=== PATIENT | female | born 2000 | race Caucasian/White ===

== ENCOUNTER 2022-09-18 08:41 | Outpatient (RCR) | payer OTHER, BC, SELFPAY ==
--- NOTE | 2022-09-18 11:47 | PC.NURSE ---
Addendum entered by Stefany Li 09/18/22 12:00: Discussed keeping up with po fluids during warm weather. States I also did not eat well yesterday and by afternoon nevaeh got nervous Support offered with reminders to care for self in order to make milk for NB. Verbalized understanding. Discussed medications that could affect supply, denies allergy meds, cold meds etc. Questions arise about BCP as 6 week visit coming up. Discussions had and will talk with PCP and . Original Note: Livier and Arpan arrive for LC visit. Livier called yesterday with complaints of low supply. Had previously been able to pump 3-4 oz each breast but obtained 1-2 oz each breast. Arpan is 4 weeks old and feeding well. Weight currently is 9-12 oz with no concerns for feeding. Discussed growth spurt and supply, pumping and supply. Verbalized understanding and states my breasts feel stewart today and feel better about all of it
--- NOTE | 2022-09-18 11:54 | PC.NURSE ---
Arpan latched shallow initially, the re-latched to deeper latch. Vigorous suckling noted and does well with feed.
== END 2022-09-18 11:10 | disposition home or self-care (01) ==
LOC: FBCO 08:41
PROVIDERS: Visit Provider Obstetrics & Gynecology
DX: Z39.1 Encounter for care and examination of lactating mother (principal)
CPT/HCPCS: G0463

== ENCOUNTER 2023-01-13 21:32 | Emergency (ER) | payer OTHER, BC, SELFPAY ==
[2023-01-13 21:34] VITALS: BP 122/82; PULSE 125; RESP 18; TEMP 36.9; O2SAT 99; BMI 28.0
--- NOTE | 2023-01-13 22:02 | PC.NURSE ---
Pt presents to ER for a pilodial cyst Pt states she had one last year at the same that she was seen for and told it wasnt ready to pop Pt states she was given an antibiotic ointment and she ruptured the cyst herself at home Pt states this time she is unable to do it herself, she is hoping for the anitbiotic ointment again Pt states she is breast feeding and is concerned about taking medications that can have an effect on this
--- NOTE | 2023-01-13 22:15 | ED.SKABFB1 ---
HPI - Skin/Abscess/Foreign Bdy General Chief complaint: Skin/Abscess/Foreign Body Stated complaint: lump Time Seen by Provider: 01/13/23 21:42 Source: patient Mode of arrival: walk-in Limitations: no limitations History of Present Illness HPI narrative: This 22-year-old female with a history of a pilonidal cyst and abscess approximately one year ago presents for evaluation of redevelopment of the cyst with local erythema, induration. She states that last year she was able to pop the cyst with a needle and put topical antibiotics on and it cleared up. She tried to squeeze the area today but it did not open up and there is no drainage. She states she is having pain with sitting and standing. She is not having any fever. She is breast-feeding. Related Data Home Medications Medication Instructions Recorded Confirmed 01/13/23 Allergies Allergy/AdvReac Type Severity Reaction Status Date / Time azithromycin Allergy Verified 01/13/23 21:39 Penicillins Allergy Verified 01/13/23 21:39 Review of Systems ROS Status of ROS 10 or more systems reviewed and unremarkable except as noted in history and below Exam Narrative Exam Narrative: Nurses note and vital signs reviewed and patient is not hypoxic. She is afebrile, she is tachycardic with a pulse of 125 General: Tearful female, she is ambulatory in the room because she cannot sit in a chair, no respiratory distress Skin: Warm, dry, no pallor noted. There is no rash noted. Head: Normocephalic, atraumatic Eye: Normal conjunctiva, no drainage, EOMI. PERRL Ears, Nose, Mouth, and Throat: oral mucosa is moist. Nares patent. Mouth without vesicles. Ear canals patent. Tm's without Erythema Cardiovascular: Regular Rate and Rhythm Acute cardiac at triage with a pulse of 125, and my exam her pulse was 110 and regular Respiratory: Patient is in no distress, no accessory muscle use, lungs are clear to auscultation, no wheezing, rales or rhonchi Back: Is an approximately 1.5 cm ovoid area at the proximal portion of the rectal. Consistent with a pilonidal cyst, there is an approximately 2 cm area of redness, induration and tenderness adjacent to this cyst. It is not amenable to drainage at this time. GI: Normal bowel sounds, no tenderness to palpation, no masses appreciated. No rebound, guarding, or rigidity noted. Neurological: A&O x4, normal speech Psychiatric: Cooperative, Tearful Constitutional Vital Signs, click to edit/add: Last Vital Signs Temp 98.5 F 01/13/23 21:34 Pulse 125 H 01/13/23 21:34 Resp 18 01/13/23 21:34 BP 122/82 01/13/23 21:34 Pulse Ox 99 01/13/23 21:34 O2 Del Method Room Air 01/13/23 21:34 Course Vital Signs Vital signs: Vital Signs Temperature 98.5 F 01/13/23 21:34 Pulse Rate 125 H 01/13/23 21:34 Respiratory Rate 18 01/13/23 21:34 Blood Pressure 122/82 01/13/23 21:34 Pulse Oximetry 99 01/13/23 21:34 Oxygen Delivery Method Room Air 01/13/23 21:34 Temperature 98.5 F 01/13/23 21:34 Pulse Rate 125 H 01/13/23 21:34 Respiratory Rate 18 01/13/23 21:34 Blood Pressure 122/82 01/13/23 21:34 Pulse Oximetry 99 01/13/23 21:34 Oxygen Delivery Method Room Air 01/13/23 21:34 MDM - Skin/Abscess/Foreign Bdy MDM Narrative Medical decision making narrative: This 22-year-old female with a history of pilonidal cyst in the past and approximately one year ago with development of an infection presents for evaluation of recurrence of the pilonidal cyst with small local abscess that appears to be forming. She has tried to open this herself but causes her severe pain and it did not open. I explained to her that it is not opening up because it is not organized enough or ready and she should continue doing warm sitz baths. We will prescribe her clindamycin since she is breast-feeding and allergic to PCN and erythromycin and she will take Tylenol and Motrin at home. She was offered stronger pain medication because she appears to be in a moderate amount of pain and is tearful and tachycardic but she declines. She'll be referred outpatient general surgery for further evaluation and treatment. I did explain to her that this is not amenable to incision and drainage at this time and opening up will only cause the infection to go deeper into her soft tissues and cause her more distress and possible worsening infection and encouraged her to not pop it on her own Discharge Plan Discharge Chief Complaint: Skin/Abscess/Foreign Body Clinical Impression: Pilonidal sinus with abscess Patient Disposition: Home, Self-Care Time of Disposition Decision: 22:16 Condition: Good Prescriptions / Home Meds: No Action Instructions: Pilonidal Cyst (ED), Abscess (ED), Sitz Bath (DC) Additional Instructions: Follow up with genreal surgery; Dr Raines Phone number [phone] Continue sitz baths 3-4 times daily Use antibiotics as directed and tylenol or motrin as needed for pain Stand Alone Forms: Portal Instructions Referrals: Daniel Pink MD [Primary Care Provider] - 1 week Sameer Raines MD [Physician] - As soon as possible (Pilonidal cyst with local infection)
== END 2023-01-13 22:36 | disposition home or self-care (01) ==
PROVIDERS: Emergency Provider Emergency Medicine; PCP Family Medicine
DX: L05.91 Pilonidal cyst without abscess (principal)
CPT/HCPCS: 99283

== ENCOUNTER 2023-06-09 19:59 | Outpatient (REF) | payer OTHER, BC, SELFPAY ==
[2023-06-13 10:08] LABS: Age Gdln ACOG Testing Note (.); IGP, rfx Aptima HPV ASCU Note (.)
== END 2023-06-09 20:00 | disposition home or self-care (01) ==
LOC: LAB 19:59
PROVIDERS: PCP Family Medicine; Visit Provider Obstetrics & Gynecology
DX: Z01.419 Encounter for gynecological examination (general) (routine) without abnormal findings (principal)
CPT/HCPCS: G0145

== ENCOUNTER 2024-06-09 15:01 | Outpatient (REF) | payer OTHER, BC, SELFPAY ==
--- OUTSIDE RECORDS SUMMARY | 2024-06-09 15:06 | XMS_ITS | CCD ---
Author Organization [facility] Care Team Providers Care Outreach Specialist Name Role Phone Franchesca Adam Unavailable MD Daniel Pink Primary Care Provider [phone] MD Daniel Pink Attending Provider DO Jun Padron Attending Provider Sera Espino Unavailable MD Daniel Pink Primary Care Provider [phone] DO Jun Padron Attending Provider SUDHEER Espino Attending Provider Jun Padron Attending Unavailable Hoy, Daniel M Primary Care Unavailable Kuns, Jun P Admitting Unavailable Kuns, Jun P Attending Unavailable Hoy, Daniel M Primary Care Unavailable Kuns, Jun P Admitting Unavailable Kuns, Jun P Admitting Unavailable Hoy, Daniel M Primary Care Unavailable Kuns, Jun P Attending Unavailable Hoy, Daniel M Primary Care Unavailable Hoy, Daniel M Attending Unavailable Hoy, Daniel M Admitting Unavailable Hoy, Daniel M Primary Care Unavailable Kuns, Jun P Admitting Unavailable Kuns, Jun P Attending Unavailable Hoy, Daniel M Primary Care Unavailable Espino-Well Visits, Sera D Admitting Ping vailable Espino-Well Visits, Sera Huynh Attending Ping vailable Hoy, Daniel M Primary Care Unavailable Jacks Jun P Admitting Unavailable Kuns Jun P Attending Unavailable Florentiny, Daniel M Primary Care Unavailable Sera Espino Admitting Unavailable Sera Espino Attending Unavailable MD Daniel Pink Primary Care Provider [phone] Espino-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 Sera Huynh Attending [facility] ider Unavailable Primary Care Provider Unavailabl e JESSI BASS Referring Unavailable ELIECER ., DR JOLLY Consulting Unavailable ELIECER ., DR JOLLY Admitting Unavailable ELIECER ., DR JOLLY Attending Unavailable HOY ., DR ADAMS Primary Care Unavailable ELIECER ., DR JOLLY Consulting Unavailable ELIECER ., DR JOLLY Admitting Unavailable HOY ., DR ADAMS Primary Care Unavailable ELIECER ., DR JOLLY Attending Unavailable Zieber, Khalif Consulting Unavailable REQUEST, DR NONE LISTED Primary Care Unavaila ble KARASIK ., DR BARBOSA Consulting Unavailabl e KARASIK ., DR BARBOSA Admitting Unavailabl e KARASIK ., DR BARBOSA Attending Unavailabl e ELIECER ., DR JOLLY Attending Unavailable ELIECER ., DR JOLLY Consulting Unavailable ELIECER ., DR JOLLY Admitting Unavailable HOY ., DR ADAMS Primary Care Unavailable ELIECER ., DR JOLLY Consulting Unavailable ELIECER ., DR JOLLY Admitting Unavailable ELIECER ., DR JOLLY Attending Unavailable HOY ., DR ADAMS Primary Care Unavailable ELIECER ., DR JOLLY Consulting Unavailable ELIECER ., DR JOLLY Attending Unavailable REQUEST, DR NONE LISTED Primary Care Unavaila ble ELIECER ., DR JOLLY Admitting Unavailable ELIECER ., DR JOLLY Consulting Unavailable ELIECER ., DR JOLLY Attending Unavailable REQUEST, DR NONE LISTED Primary Care Unavaila ble ELIECER ., DR JOLLY Admitting Unavailable KARASIK ., DR BARBOSA Consulting Unavailabl e KARASIK ., DR BARBOSA Admitting Unavailabl e KARASIK ., DR BARBOSA Attending Unavailabl e REQUEST, DR NONE LISTED Primary Care Unavaila ble WEST, DR LIZA Hood Consulting Unavailable ZiKhalif jones Consulting Unavailable VIJAYA ., LUIS Consulting Unavailable ELIECER ., DR JOLLY Consulting Unavailable ELIECER ., DR JOLLY Admitting Unavailable ELIECER ., DR JOLLY Attending Unavailable HOY ., DR ADAMS Primary Care Unavailable ZiebKhalif rea Consulting Unavailable ELIECER ., DR JOLLY Attending Unavailable ELIECER ., DR JOLLY Admitting Unavailable WEST, DR LIZA Hood Consulting Unavailable REQUEST, DR NONE LISTED Primary Care Unavaila ble ELIECER ., DR JOLLY Consulting Unavailable VIJAYA ., LUIS Consulting Unavailable REQUEST, DR NONE LISTED Primary Care Unavaila ble ELIECER ., DR JOLLY Consulting Unavailable ELEICER ., DR JOLLY Admitting Unavailable ELIECER ., DR JOLLY Attending Unavailable Zieber, Khalif Consulting Unavailable KARASIK ., DR BARBOSA Consulting Unavailabl e KARASIK ., DR BARBOSA Admitting Unavailabl e KARASIK ., DR BARBOSA Attending Unavailabl e REQUEST, DR NONE LISTED Primary Care Unavaila ble REQUEST, DR NONE LISTED Primary Care Unavaila ble MARY JANE, NANCY Admitting Unavailable MARY JANE, NANCY Attending Unavailable MARY JANE, NANCY Consulting Unavailable KARASIK ., DR BARBOSA Consulting Unavailabl e KARASIK ., DR BARBOSA Admitting Unavailabl e KARASIK ., DR BARBOSA Attending Unavailabl e REQUEST, DR NONE LISTED Primary Care Unavaila ble WEST, DR LIZA Hood Consulting Unavailable VIJAYA ., LUIS Consulting Unavailable VIJAYA ., LUIS Attending Unavailable VIJAYA ., LUIS Admitting Unavailable WEST, DR LIZA Hood Consulting Unavailable REQUEST, DR NONE LISTED Primary Care Unavaila ble ELIECER ., DR JOLLY Consulting Unavailable VIJAYA ., LUIS Consulting Unavailable REQUEST, DR NONE LISTED Primary Care Unavaila ble ELIECER ., DR JOLLY Attending Unavailable ELIECER ., DR JOLLY Admitting Unavailable ELIECER ., DR JOLLY Consulting Unavailable REQUEST, DR NONE LISTED Primary Care Unavaila ble ELIECER ., DR JOLLY Attending Unavailable ELIECER ., DR JOLLY Admitting Unavailable WEST, DR LIZA Hood Consulting Unavailable ELIECER ., DR JOLLY Consulting Unavailable JOSEFINA, DR JUAN Johnson Admitting Unavailable JOSEFINA, DR JUAN Johnson Attending Unavailable JOSEFINA, DR JUAN Johnson Consulting Unavailable RICHARD ., DR ADAMS Primary Care Unavailable ELIECER ., DR JOLLY Consulting Unavailable ELIECER ., DR JOLLY Attending Unavailable REQUEST, DR NONE LISTED Primary Care Unavaila ble ELIECER ., DR JOLLY Admitting Unavailable KARASIK ., DR BARBOSA Consulting Unavailabl e KARASIK ., DR BARBOSA Admitting Unavailabl e KARASIK ., DR BARBOSA Attending Unavailabl e REQUEST, DR NONE LISTED Primary Care Unavaila ble Zieber, Khalif Consulting Unavailable VIJAYA ., LUIS Consulting Unavailable SUDHIR ROMAN Admitting Unavailable SUDHIR ROMAN Attending Unavailable REQUEST, DR NONE LISTED Primary Care UnavailSUDHIR Soria Consulting Unavailable VIJAYA ., LUIS Attending Unavailable VIJAYA ., LUIS Admitting Unavailable REQUEST, NONE LISTED Primary Care Unavaila ble ELIECER ., DR JOLLY Consulting Unavailable ZieberKhalif Consulting Unavailable VIJAYA ., LUIS Consulting Unavailable HÉCTOR ., WERNER Admitting Unavailable HÉCTOR ., WERNER Attending Unavailable HÉCTOR ., WERNER Consulting Unavailable RICHARD ., DR ADAMS Primary Care Unavailable REQUEST, NONE LISTED Primary Care Unavaila ble ELIECER ., DR JOLLY Consulting Unavailable ELIECER ., DR JOLLY Admitting Unavailable ELIECER ., DR JOLLY Attending Unavailable KARASIK ., DR BARBOSA Consulting Unavailabl e KARASIK ., DR BARBOSA Admitting Unavailabl e KARASIK ., DR BARBOSA Attending Unavailabl e REQUEST, DR NONE LISTED Primary Care Unavaildavid Pink MD, Daniel Hong Primary Care Provider [phone] Allergies Allergy Classification Reported Allergen(s) Allergy Type Date of Onset Reaction(s) Facility (3 sources) Erythromycin Drug Allergy [facility] Other (3 sources) Penicillin V Drug Allergy [facility] Other (1 source) Penicillins Propensity to adverse reactions to drug 05-22-19 23 [facility] (4 sources) Erythromycin Drug Allergy 09-06-19 14 Unknown [facility] (1 source) Penicillins Drug allergy (disorder) 09-06-19 15 [facility] (3 sources) Azithromycin Drug Allergy 10-02-19 23 Unknown [facility] Work Phone: (3 sources) Penicillins Drug Intolerance 05-22-19 23 Angioedema, Shortness of breath, Unknown [facility] Healthcare Medications Current Medications Medication Drug Class(es) Dates Sig (Normalized) Sig (Original) clindamycin 10 mg/ml topical lotion (1 source) Lincosamide Antibacterial Start: 05-16-2022 clindamycin (CLEOCIN T) 1 % lotion ethinyl estradiol 0.035 mg / norgestimate 0.25 mg oral tablet (3 sources) Progestin, Estrogen Start: 12-23-2023 End: 06-09-2024 take 1 tablet by mouth once daily, then take 1 tablet by mouth once daily norgestimate-ethin yl estradiol (Sprintec 28) 0.25-35 MG-MCG tablet Indications: control counseling Take 1 tablet by mouth Daily for 28 days Take 1 tablet by mouth daily 28 tablet 12 12/23/2023 06/09/2024 Discontinued hydrOXYzine pamoate 25 mg oral capsule (2 sources) Antihistamine Start: 06-09-2024 End: 06-19-2024 take 1 capsule by mouth every six hours hydrOXYzine pamoate (Vistaril) 25 MG capsule Indications: Skin irritation Take 1 capsule (25 mg) by mouth every 6 (six) hours if needed for itching for up to 10 days 30 capsule 06/09/2024 06/19/2024 Active Multiple Vitamin (multivitamin) capsule (3 sources) take 1 capsule by mouth in the morning Multiple Vitamin (multivitamin) capsule Take 1 capsule by mouth in the morning. 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] Onset: 07-18-2022 Chronic Influenza (3 sources) Influenza; Translations: [Influenza B] Episodic Menstrual disorders (6 sources) Dysmenorrhea; Translations: [Dysmenorrhea, unspecified] Onset: 01-16-2023 01-16-2023 Chronic Other aftercare (1 source) Encounter for follow-up examination after completed treatment for conditions other than malignant neoplasm Episodic Other complications of ; puerperium affecting management of mother (4 sources) Maternal care for other (suspected) abnormality and damage, not applicable or unspecified; Translations: [MAT CARE OTH ABN DAMGE NA/UNS] Onset: 07-05-2022 Episodic Other complications of (2 sources) Supervision of other high risk pregnancies, second trimester; Translations: [Supervision of other high risk pregnancies, second trimester] Onset: 05-22-2022 Episodic Other complications of (4 sources) Other specified related conditions, third trimester; Translations: [OTH SPEC PREG RELATED COND 3RD TRI] Onset: 08-09-2022 Episodic Other complications of (4 sources) Other placental disorders, third trimester; Translations: [OTH PLACENTAL DISORDER THIRD TRI] Onset: 08-06-2022 Episodic Other female genital disorders (3 sources) Dyspareunia due to non-psychogenic cause in the female; Translations: [Other specified dyspareunia] Onset: 01-16-2023 01-16-2023 Chronic Other and delivery including normal (20 sources) Encounter for supervision of normal first , unspecified trimester; Translations: [Encounter for supervision of normal first , third trimester] Onset: 02-08-2022 Episodic Other skin disorders (2 sources) Skin irritation ; Translations: [Other skin changes] 06-09-2024 Episodic Other upper respiratory disease (3 sources) Seasonal allergic rhinitis; Translations: [Other seasonal allergic rhinitis] Chronic Residual codes; unclassified (1 source) Other specified health status Episodic Residual codes; unclassified (1 source) 37 weeks gestation of ; Translations: [37 WEEKS GESTATION OF ] Onset: 08-14-2022 Episodic Residual codes; unclassified (1 source) 36 weeks gestation of ; Translations: [36 WEEKS GESTATION OF ] Onset: 08-07-2022 Episodic Residual codes; unclassified (1 source) 35 weeks gestation of ; Translations: [35 WEEKS GESTATION OF ] Onset: 07-31-2022 Episodic Residual codes; unclassified (1 source) 34 weeks gestation of ; Translations: [34 WEEKS GESTATION OF ] Onset: 07-24-2022 Episodic Residual codes; unclassified (1 source) 33 weeks gestation of ; Translations: [33 WEEKS GESTATION OF ] Onset: 07-20-2022 Episodic Residual codes; unclassified (1 source) 32 weeks gestation of ; Translations: [32 WEEKS GESTATION OF ] Onset: 07-11-2022 Episodic Unclassified (1 source) Z77.21 - Contact with and (suspected) exposure to potentially hazardous body fluids; Translations: [Z77.21 - Contact with and (suspected) exposure to potentially hazardous body fluids] Onset: 10-07-2021 Unclassified (1 source) Z00.00 - Encounter for general adult medical examination without abnormal findings; Translations: [Z00.00 - Encounter for general adult medical examination without abnormal findings] Onset: 09-10-2021 Unclassified (1 source) Z20.822 - Contact with and (suspected) exposure to COVID-19; Translations: [Z20.822 - Contact with and (suspected) exposure to COVID-19] Onset: 04-06-2021 Past or Other Problems Problem Classification Problem Date Documented Date Episodic/Chronic Hemorrhage during ; abruptio placenta; placenta previa (8 sources) Hemorrhage in early , unspecified; Translations: [Threatened ] Onset: 12-31-2021 Episodic Immunizations and screening for infectious disease (3 sources) Contact with and (suspected) exposure to other viral communicable diseases; Translations: [Encounter for screening for human papillomavirus (HPV)] Onset: 04-01-2021 Resolved: 04-01-2021 Episodic Other complications of (1 source) Other specified related conditions, first trimester; Translations: [OTH SPEC PREG RELATED COND 1ST TRI] Onset: 02-11-2022 Episodic Other female genital disorders (1 source) Other specified noninflammatory disorders of vagina; Translations: [OTH SPEC NONINFLAMMATORY D/O VAGINA] Onset: 05-14-2022 Episodic Other inflammatory condition of skin (3 sources) Erythematous condition, unspecified; Translations: [ERYTHEMATOUS CONDITION UNSPECIFIED] Onset: 09-08-2021 Episodic Other screening for suspected conditions (not mental disorders or infectious disease) (7 sources) Encounter for screening for malignant neoplasm of cervix; Translations: [Encounter for screening for diabetes mellitus] Onset: 02-13-2022 Episodic Residual codes; unclassified (1 source) 20 weeks gestation of ; Translations: [20 WEEKS GESTATION OF ] Onset: 04-17-2022 Episodic Residual codes; unclassified (1 source) 11 weeks gestation of ; Translations: [11 WEEKS GESTATION OF ] Onset: 02-11-2022 Episodic Skin and subcutaneous tissue infections (8 sources) Pilonidal cyst without abscess; Translations: [Cellulitis of right lower limb] Onset: 09-09-2021 Episodic Results Test Name Value Interpretation Reference Range Facility CBC AUTO DIFFon 05-17-2023 BASO # 0.0 103/ul Normal 0.0-0.1 [facility] Comment on above: Performed By: #### H CVPCRR #### [facility] [address] [place] [address] Dr. Magnus Kraus Basophils/100 WBC (Bld) 0.2 % Normal 0.2-2.0 [facility] Comment on above: Performed By: #### H CVPCRR #### [facility] [address] [place] [address] Dr. Magnus Kraus EO # 0.1 103/ul Normal 0.0-0.7 [facility] Comment on above: Performed By: #### H CVPCRR #### [facility] [address] [place] [address] Dr. Magnus Kraus Eosinophils/100 WBC (Bld) 0.6 % Critically low 0.9-7.0 [facility] Comment on above: Performed By: #### H CVPCRR #### [facility] [address] [place] [address] Dr. Magnus Kraus Erythrocyte distribution width (RBC) [Ratio] 13.4 % Normal 11.0-15.0 [facility] Comment on above: Performed By: #### H CVPCRR #### [facility] [address] [place] [address] Dr. Magnus Kraus Hematocrit (Bld) [Volume fraction] 38.3 % Normal 36.0-48.0 [facility] Comment on above: Performed By: #### H CVPCRR #### [facility] [address] [place] [address] Dr. Magnus Kraus Hemoglobin (Bld) [Mass/Vol] 13.0 g/dL Normal 12.0-16.0 [facility] Comment on above: Performed By: #### H CVPCRR #### [facility] [address] [place] [address] Dr. Magnus Kraus IG # 0.04 10e3/ul Critically high 0.00-0.03 [facility] Comment on above: Performed By: #### H CVPCRR #### [facility] [address] [address] [address] Magnus Kraus IG % 0.4 % Normal 0.0-0.5 [facility] Comment on above: Performed By: #### H CVPCRR #### [facility] [address] [address] [address] Magnus Kraus LYMPH # 1.6 103/ul Normal 1.2-3.8 [facility] Comment on above: Performed By: #### H CVPCRR #### [facility] [address] [address] [address] Magnus Kraus Lymphocytes/100 WBC (Bld) 15.4 % Critically low 20.5-60.0 [facility] Comment on above: Performed By: #### H CVPCRR #### [facility] [address] [place] [address] Dr. Magnus Kraus MANUAL DIFF REQ NO Normal [facility] Comment on above: Performed By: #### H CVPCRR #### [facility] [address] [place] [address] Dr. Magnus Kraus MCH (RBC) [Entitic mass] 29.9 pg Normal 26.7-34.0 [facility] Comment on above: Performed By: #### H CVPCRR #### [facility] [address] [place] [address] Dr. Magnus Kraus MCHC (RBC) [Mass/Vol] 33.9 g/dL Normal 29.9-35.2 [facility] Comment on above: Performed By: #### H CVPCRR #### [facility] [address] [place] [address] Dr. Magnus Kraus MCV (RBC) [Entitic vol] 88.0 fL Normal 81.0-99.0 [facility] Comment on above: Performed By: #### H CVPCRR #### [facility] [address] [place] [address] Dr. Magnus Kraus MONO # 0.7 103/ul Normal 0.3-0.8 [facility] Comment on above: Performed By: #### H CVPCRR #### [facility] [address] [address] [address] Magnus Kraus Monocytes/100 WBC (Bld) 6.7 % Normal 1.7-12.0 [facility] Comment on above: Performed By: #### H CVPCRR #### [facility] [address] [place] [address] Dr. Magnus Kraus NEUT # 7.7 103/ul Critically high 1.4-6.5 [facility] Comment on above: Performed By: #### H CVPCRR #### [facility] [address] [place] [address] Dr. Magnus Kraus Neutrophils/100 WBC (Bld) 76.7 % Critically high 43.0-75.0 [facility] Comment on above: Performed By: #### H CVPCRR #### [facility] [address] [place] [address] Dr. Magnus Kraus Platelet mean volume (Bld) [Entitic vol] 11.8 fL Normal 9.5-13.5 [facility] Comment on above: Performed By: #### H CVPCRR #### [facility] [address] [place] [address] Dr. Magnus Kraus PLT 204 103/ul Normal 150-450 [facility] Comment on above: Performed By: #### H CVPCRR #### [facility] [address] [place] [address] Dr. Magnus Kraus RBC 4.35 106/ul Normal 4.20-5.40 [facility] Comment on above: Performed By: #### H CVPCRR #### [facility] [address] [place] [address] Dr. Magnus Kraus WBC 10.0 103/ul Normal 4.0-11.0 [facility] Comment on above: Performed By: #### H CVPCRR #### [facility] [address] [place] [address] Dr. Magnus Kraus DRUG SCREEN RAPID (URINE)on 08-20-2022 AMP Negative Normal NEGATIVE [facility] Comment on above: Performed By: #### D RUGRPD #### [facility] [address] [place] [address] Dr. Magnus Kraus BAR Negative Normal NEGATIVE [facility] Comment on above: Performed By: #### D RUGRPD #### [facility] [address] [place] [address] Dr. Magnus Kraus BUP Negative Normal NEGATIVE [facility] Comment on above: Performed By: #### D RUGRPD #### [facility] [address] [place] [address] Dr. Magnus Kraus BZO Negative Normal NEGATIVE [facility] Comment on above: Performed By: #### D RUGRPD #### [facility] [address] [place] [address] Dr. Magnus Kraus JET Negative Normal NEGATIVE [facility] Comment on above: Performed By: #### D RUGRPD #### [facility] [address] [place] [address] Dr. Magnus Kraus CUT-OFFS SEE BELOW Normal [facility] Comment on above: Result Comment: AMP (Amphetamine): 500ng/mL, BAR (Barbituates): 200 ng/mL, BZO (Benzodiazepines): 150 ng/mL, BUP (Buprenorphine): 10 ng/mL, JET (Cocaine): 150 ng/mL, mAMP (Methamphetamine): 500 ng/mL, MTD (Methadone): 200 ng/mL, OPI (Opiates): 100 ng/mL, OXY (Oxycodone): 100 ng/mL, PCP (Phencyclidine): 25 ng/mL, PPX (Propoxyphene): 300 ng/mL, THC (Cannabinoids): 50 ng/mL, TCA (Trycyclic Antidepressants): 300 ng/mL Performed By: #### D RUGRPD #### [facility] [address] [place] [address] Dr. Magnus Kraus DRUG CUT HEADER DRUG CLASS TEST SYSTEM CUT-OFF CONCENTRATIONS ARE FOLLOWS: Normal [facility] Comment on above: Performed By: #### D RUGRPD #### [facility] [address] [place] [address] Dr. Magnus Kraus mAMP Negative Normal NEGATIVE [facility] Comment on above: Performed By: #### D RUGRPD #### [facility] [address] [address] [address] Magnus Kraus MTD Negative Normal NEGATIVE [facility] Comment on above: Performed By: #### D RUGRPD #### [facility] [address] [address] [address] Magnus Kraus OPI Negative Normal NEGATIVE [facility] Comment on above: Performed By: #### D RUGRPD #### [facility] [address] [address] [address] Magnus Kraus OXY Negative Normal NEGATIVE [facility] Comment on above: Performed By: #### D RUGRPD #### [facility] [address] [place] [address] Dr. Magnus Kraus PCP Negative Normal NEGATIVE [facility] Comment on above: Performed By: #### D RUGRPD #### [facility] [address] [place] [address] Dr. Magnus Kraus PPX Negative Normal NEGATIVE [facility] Comment on above: Performed By: #### D RUGRPD #### [facility] [address] [address] [address] Magnus Kraus TCA Negative Normal NEGATIVE [facility] Comment on above: Performed By: #### D RUGRPD #### [facility] [address] [place] [address] Dr. Magnus Kraus THC Negative Normal NEGATIVE [facility] Comment on above: Performed By: #### D RUGRPD #### [facility] [address] [place] [address] Dr. Magnus Kraus US PREG BIOPHY W NON STRESSo n 08-14-2022 US PREG BIOPHY W NON STRESS EXAMINATION: US PREG BIOPHY W NON STRESS HISTORY: Single umbilical artery COMPARISON: Ultrasound biophysical 08/06/2022 FINDINGS: BREATHING MOVEMENTS: 2.0 GROSS BODY MOVEMENTS: 2.0 TONE: 2.0 QUALITATIVE AMNIOTIC FLUID VOLUME: 2.0 PRESENTATION: CEPHALIC HEART RATE: 127.4 bpm bpm. AMNIOTIC FLUID VOLUME: 13.7 cm GESTATIONAL AGE: 38 weeks 0 days CONCLUSION: Total biophysical profile score 8.0. Electronically authenticated by: KHALIF SZYMANSKI Date: 2022-08-14 15:36 Normal [facility] US PREG UMBILICAL ARTERYon 0 08-14-2022 US PREG UMBILICAL ARTERY EXAMINATION: US PREG UMBILICAL ARTERY HISTORY: Single umbilical artery COMPARISON: No relevant comparison available. TECHNIQUE: Duplex Doppler evaluation of the umbilical arteries. FINDINGS: HEART RATE: 127 bpm UMBILICAL ARTERIES: 1 GESTATIONAL AGE: 38 weeks 0 days WAVEFORM: Normal upstroke. No notching. Forward flow in diastole. PEAK SYSTOLIC VELOCITY: 147 cm/s END DIASTOLIC VELOCITY: 83 cm/s SYST/DIAST RATIO (S:D): 1.8 RESISTIVE INDEX: 0.4 IMPRESSION: Class 0 = Normal umbilical artery blood velocity Systolic/diastolic ratio is at 10th percentile. Electronically authenticated by: KHALIF SZYMANSKI Date: 2022-08-14 15:35 Normal [facility] US PREG BIOPHY W NON STRESSo n 08-07-2022 US PREG BIOPHY W NON STRESS EXAMINATION: US PREG BIOPHY W NON STRESS HISTORY: Single umbilical artery COMPARISON: No relevant comparison available. TECHNIQUE: Ultrasound biophysical profile was performed in the radiology department. FINDINGS: BREATHING MOVEMENTS: 2.0 GROSS BODY MOVEMENTS: 2.0 TONE: 2.0 QUALITATIVE AMNIOTIC FLUID VOLUME: 2.0 PRESENTATION: CEPHALIC HEART RATE: 134.3 bpm H.B./min AMNIOTIC FLUID VOLUME: 17.1 cm cm GESTATIONAL AGE: 37 weeks 0 days CONCLUSION: Total biophysical profile score: 8.0 Electronically authenticated by: LIZA HARMON Date: 2022-08-07 16:52 Normal [facility] US PREG UMBILICAL ARTERYon 0 08-07-2022 US PREG UMBILICAL ARTERY EXAMINATION: US PREG UMBILICAL ARTERY HISTORY: Single umbilical artery COMPARISON: 07/30/2022 TECHNIQUE: Duplex Doppler evaluation of the umbilical arteries. FINDINGS: position: Cephalic presentation, longitudinal lie Amniotic fluid volume: 17.1 cm, largest pocket, 5.2 cm Heart rate: 130 minute Proximal umbilical artery PSV/EDV: 115/55 cm/s. Resistive index 0.52. Ratio 2.1 Mid umbilical artery PSV/EDV: 106/66 cm/s. Resistive index 0.3. Ratio 1.6 Distal umbilical artery PSV/EDV: 81/50 cm/s. Resistive index 0.3. Ratio 1.6 Forward flow identified throughout diastole IMPRESSION: Forward flow identified throughout diastole,, class 0 Decreased systolic diastolic ratio Umbilical Artery: Class 0 = Normal umbilical artery blood velocity Class I = increased RI or PI, but still forward flow in diastole Class II = Absent end diastolic flow (AEDF) Class III = Reversal of end diastolic flow (REDF) Resistive Index (RI)<1 Systolic/Diastolic ratio (S:D): An S:D ratio of 2-3 after 34 wks is normal Systolic/Diastolic ratio (S:D): Age 16: 3.01 for the 10th percentile, 4.25 for the 50th percentile, 6.07 for the 90th percentile Age 20: 3.16 for the 10th percentile, 4.04 for the 50th percentile, 5.24 for the 90th percentile Age 24: 2.70 for the 10th percentile, 3.50 for the 50th percentile, 4.75 for the 90th percentile Age 28: 2.41 for the 10th percentile, 3.02 for the 50th percentile, 3.97 for the 90th percentile Age 30: 2.43 for the 10th percentile, 3.04 for the 50th percentile, 3.80 for the 90th percentile Age 32: 2.27 for the 10th percentile, 2.73 for the 50th percentile, 3.57 for the 90th percentile Age 34: 2.08 for the 10th percentile, 2.52 for the 50th percentile, 3.41 for the 90th percentile Age 36: 1.96 for the 10th percentile, 2.35 for the 50th percentile, 3.15 for the 90th percentile Age 38: 1.89 for the 10th percentile, 2.24 for the 50th percentile, 3.10 for the 90th percentile Age 40: 1.88 for the 10th percentile, 2.22 for the 50th percentile, 2.68 for the 90th percentile Age 41: 1.93 for the 10th percentile, 2.21 for the 50th percentile, 2.55 for the 90th percentile Age 42: 1.91 for the 10th percentile, 2.51 for the 50th percentile, 3.21 for the 90th percentile Uteroplacental Artery: Resistive Index (RI): Normal=<0.55 High Resistance=Bilateral notches (after 26 wks) and RI>0.55. Unilateral notches (after 26 wks) and RI>0.65 Systolic/Diastolic ratio (S:D) = 2-3 is normal after 32 weeks. Electronically authenticated by: LIZA HARMON Date: 2022-08-07 16:50 Normal [facility] US PREG BIOPHY W NON STRESSo n 07-31-2022 US PREG BIOPHY W NON STRESS EXAMINATION: US PREG BIOPHY W NON STRESS HISTORY: Single umbilical artery COMPARISON: Ultrasound patency biophysical 07/23/2022 FINDINGS: BREATHING MOVEMENTS: 2.0 GROSS BODY MOVEMENTS: 2.0 TONE: 2.0 QUALITATIVE AMNIOTIC FLUID VOLUME: 2.0 PRESENTATION: CEPHALIC HEART RATE: 133.7 bpm bpm. AMNIOTIC FLUID VOLUME: 18.8 cm GESTATIONAL AGE: 36 weeks 0 days CONCLUSION: Total biophysical profile score 8.0. Electronically authenticated by: KHALIF SZYMANSKI Date: 2022-07-31 16:02 Normal [facility] US PREG GROWTHon 07-31-2022 US PREG GROWTH EXAMINATION: US PREG GROWTH HISTORY: Single umbilical artery COMPARISON: Ultrasound growth 07/02/2022 FINDINGS: Heart Rate: 133.7 bpm Number: 1.0 Position: CEPHALIC Amniotic Fluid Volume: 18.8 cm Maximum Vertical Pocket: 7.5 cm BIOMETRY: BPD: 9.3 cm cm; 37 weeks 6 days; 95% HC: 34.9 cmcm; 40 weeks 4 days; >97% AC: 33.3 cm cm; 37 weeks 1 days; 88% FL: 7.1 cm cm; 36 weeks 4 days; 59% EFW: 3218.0 grams; 87% FL/AC: 21.4 FL/BPD: 76.5 HC/AC: 1.1 GESTATIONAL AGE: Age by EDC: 36 weeks 0 days ANTOINE by EDC: 08/27/2022 Age by US: 38 weeks 0 days ANTOINE by US: 08/13/2022 IMPRESSION: 1. Single live intrauterine with growth detailed above. 2. Head circumference is greater than 97th percentile. Electronically authenticated by: KHALIF SZYMANSKI Date: 2022-07-31 16:05 Normal [facility] US PREG UMBILICAL ARTERYon 0 07-31-2022 US PREG UMBILICAL ARTERY EXAMINATION: US PREG UMBILICAL ARTERY HISTORY: Single umbilical artery COMPARISON: No relevant comparison available. TECHNIQUE: Duplex Doppler evaluation of the umbilical arteries. FINDINGS: Single umbilical artery Heart rate 134 bpm Forward flow throughout diastole Proximal umbilical artery: 61/32 cm/s. Ratio 1.9. Resistive index 0.48 Mid umbilical artery: 94/52 cm/s. Ratio 1.8. Resistive index of 0.44 Distal umbilical artery: 80/49 cm/s. Ratio 1.6. Resistive index 0.39 Ultrasound age: 38 weeks 0 days IMPRESSION: Forward flow throughout diastole Systolic diastolic ratio below the 10th percentile Umbilical Artery: Class 0 = Normal umbilical artery blood velocity Class I = increased RI or PI, but still forward flow in diastole Class II = Absent end diastolic flow (AEDF) Class III = Reversal of end diastolic flow (REDF) Resistive Index (RI)<1 Systolic/Diastolic ratio (S:D): An S:D ratio of 2-3 after 34 wks is normal Systolic/Diastolic ratio (S:D): Age 16: 3.01 for the 10th percentile, 4.25 for the 50th percentile, 6.07 for the 90th percentile Age 20: 3.16 for the 10th percentile, 4.04 for the 50th percentile, 5.24 for the 90th percentile Age 24: 2.70 for the 10th percentile, 3.50 for the 50th percentile, 4.75 for the 90th percentile Age 28: 2.41 for the 10th percentile, 3.02 for the 50th percentile, 3.97 for the 90th percentile Age 30: 2.43 for the 10th percentile, 3.04 for the 50th percentile, 3.80 for the 90th percentile Age 32: 2.27 for the 10th percentile, 2.73 for the 50th percentile, 3.57 for the 90th percentile Age 34: 2.08 for the 10th percentile, 2.52 for the 50th percentile, 3.41 for the 90th percentile Age 36: 1.96 for the 10th percentile, 2.35 for the 50th percentile, 3.15 for the 90th percentile Age 38: 1.89 for the 10th percentile, 2.24 for the 50th percentile, 3.10 for the 90th percentile Age 40: 1.88 for the 10th percentile, 2.22 for the 50th percentile, 2.68 for the 90th percentile Age 41: 1.93 for the 10th percentile, 2.21 for the 50th percentile, 2.55 for the 90th percentile Age 42: 1.91 for the 10th percentile, 2.51 for the 50th percentile, 3.21 for the 90th percentile Uteroplacental Artery: Resistive Index (RI): Normal=<0.55 High Resistance=Bilateral notches (after 26 wks) and RI>0.55. Unilateral notches (after 26 wks) and RI>0.65 Systolic/Diastolic ratio (S:D) = 2-3 is normal after 32 weeks. Electronically authenticated by: LIZA HARMON Date: 2022-07-31 09:32 Normal [facility] GROUP B STREP CULTUREon 07-06 S. agalactiae Ag Ql (Unsp spec) Culture Observations: NEGATIVE FOR GROUP B STREPTOCOCCUS. Normal [facility] Comment on above: Performed By: #### G BSCX #### [facility] [address] [place] [address] Dr. Magnus Kraus US PREG BIOPHY W NON STRESSo n 07-23-2022 US PREG BIOPHY W NON STRESS EXAMINATION: US PREG BIOPHY W NON STRESS HISTORY: Single umbilical artery COMPARISON: No relevant comparison available. TECHNIQUE: Ultrasound biophysical profile was performed in the radiology department. FINDINGS: BREATHING MOVEMENTS: 2 GROSS BODY MOVEMENTS: 2 TONE: 2 QUALITATIVE AMNIOTIC FLUID VOLUME: 2 PRESENTATION: Cephalic HEART RATE: 146.7 bpm H.B./min AMNIOTIC FLUID VOLUME: 22.3 cm cm GESTATIONAL AGE: 35 weeks 0 days CONCLUSION: Total biophysical profile score: 8 Electronically authenticated by: LIZA HARMON Date: 2022-07-23 19:50 Normal [facility] US PREG BIOPHY W NON STRESSo n 07-21-2022 US PREG BIOPHY W NON STRESS EXAMINATION: US PREG BIOPHY W NON STRESS HISTORY: Single umbilical artery COMPARISON: Ultrasound biophysical 07/09/2022 FINDINGS: BREATHING MOVEMENTS: 2.0 GROSS BODY MOVEMENTS: 2.0 TONE: 2.0 QUALITATIVE AMNIOTIC FLUID VOLUME: 2.0 PRESENTATION: CEPHALIC HEART RATE: 137.8 bpm bpm. AMNIOTIC FLUID VOLUME: 14.2 cm GESTATIONAL AGE: 34 weeks 0 days CONCLUSION: 1. Total biophysical profile score 8.0. 2. Two-vessel cord. Electronically authenticated by: KHALIF SZYMANSKI Date: 2022-07-20 22:21 Normal [facility] US PREG UMBILICAL ARTERYon 0 07-21-2022 US PREG UMBILICAL ARTERY EXAMINATION: US PREG UMBILICAL ARTERY HISTORY: Single umbilical artery COMPARISON: No relevant comparison available. TECHNIQUE: Duplex Doppler evaluation of the umbilical arteries. FINDINGS: HEART RATE: 138 bpm UMBILICAL ARTERIES: 1 GESTATIONAL AGE: 34 weeks 0 days WAVEFORM: Normal upstroke. No notching. Forward flow in diastole. PEAK SYSTOLIC VELOCITY: 77 cm/s END DIASTOLIC VELOCITY: 39 cm/s SYST/DIAST RATIO (S:D): 2.0 RESISTIVE INDEX: 0.5 IMPRESSION: Class 0 = Normal umbilical artery blood velocity Electronically authenticated by: KHALIF SZYMANSKI Date: 2022-07-20 22:23 Normal [facility] US PREG BIOPHY W NON STRESSo n 07-10-2022 US PREG BIOPHY W NON STRESS EXAMINATION: US PREG BIOPHY W NON STRESS HISTORY: Single umbilical artery COMPARISON: Ultrasound biophysical 07/02/2022 FINDINGS: BREATHING MOVEMENTS: 2.0 GROSS BODY MOVEMENTS: 2.0 TONE: 2.0 QUALITATIVE AMNIOTIC FLUID VOLUME: 2.0 PRESENTATION: Cephalic HEART RATE: 137.1 bpm bpm. AMNIOTIC FLUID VOLUME: 14.3 cm GESTATIONAL AGE: 33 weeks 0 days CONCLUSION: Total biophysical profile score 8.0. Electronically authenticated by: KHALIF SZYMANSKI Date: 2022-07-10 06:19 Normal [facility] US PREG UMBILICAL ARTERYon 0 07-10-2022 US PREG UMBILICAL ARTERY EXAMINATION: US PREG UMBILICAL ARTERY HISTORY: Single umbilical artery COMPARISON: Ultrasound umbilical artery 07/02/2022 TECHNIQUE: Duplex Doppler evaluation of the umbilical arteries. FINDINGS: HEART RATE: 137 bpm UMBILICAL ARTERIES: 1 GESTATIONAL AGE: 33 weeks 0 days WAVEFORM: Normal upstroke. No notching. Forward flow in diastole. PEAK SYSTOLIC VELOCITY: 89 cm/s END DIASTOLIC VELOCITY: 48 cm/s SYST/DIAST RATIO (S:D): 1.8 RESISTIVE INDEX: 0.5 IMPRESSION: Class 0 umbilical artery blood flow, but systolic/diastolic ratio is below 10th percentile for age. Umbilical Artery: Class 0 = Normal umbilical artery blood velocity Class I = increased RI or PI, but still forward flow in diastole Class II = Absent end diastolic flow (AEDF) Class III = Reversal of end diastolic flow (REDF) Systolic/diastolic ratio: Age 32: 2.27 for the 10th percentile, 2.73 for the 50th percentile, 3.57 for the 90th percentile Age 34: 2.08 for the 10th percentile, 2.52 for the 50th percentile, 3.41 for the 90th percentile Electronically authenticated by: KHALIF SZYMANSKI Date: 2022-07-10 06:24 Normal [facility] US PREG BIOPHY W NON STRESSo n 07-03-2022 US PREG BIOPHY W NON STRESS EXAMINATION: US PREG BIOPHY W NON STRESS HISTORY: Single umbilical artery COMPARISON: No relevant comparison available. TECHNIQUE: Ultrasound biophysical profile was performed in the radiology department. FINDINGS: BREATHING MOVEMENTS: 2 GROSS BODY MOVEMENTS: 2 TONE: 2 QUALITATIVE AMNIOTIC FLUID VOLUME: 2 PRESENTATION: CEPHALIC HEART RATE: 147.5 bpm H.B./min AMNIOTIC FLUID VOLUME: 10.9 cm cm GESTATIONAL AGE: 32 weeks 0 days CONCLUSION: Total biophysical profile score: 8 Electronically authenticated by: LIZA HARMON Date: 2022-07-03 15:00 Normal [facility] US PREG GROWTHon 07-03-2022 US PREG GROWTH EXAMINATION: US PREG GROWTH HISTORY: Single umbilical artery COMPARISON: No relevant comparison available. FINDINGS: Heart Rate: 147.5 bpm Amniotic Fluid Volume: 10.9 cm Number: 1.0 Position: Cephalic presentation, longitudinal lie Placenta: Anterior Maximum Vertical Pocket: 3.9 cm cm 3.7 cm cm 1.9 cm cm 1.5 cm cm BIOMETRY: BPD: 8.6 cm cm; 34 weeks 6 days; > 97% HC: 31.1 cmcm; 34 weeks 5 days, 84% AC: 31.1 cm cm; 35 weeks 0 days> 97% FL: 6.2 cm cm; 32 weeks 1 days; 40.0 % % EFW: 2367.7 grams, 5 lbs. 4 oz., 95% FL/AC: 20.0 FL/BPD: 71.8 HC/AC: 1.0 Single umbilical artery GESTATIONAL AGE: Age by EDC: 32 weeks 0 days ANTOINE by EDC: 08/27/2022 Age by US: 34 weeks 1 day ANTOINE by US: 08/08/2022 IMPRESSION: BPD and abdominal circumference greater than the 97th percentile Electronically authenticated by: LIZA HARMON Date: 2022-07-03 15:02 Normal [facility] US PREG UMBILICAL ARTERYon 0 07-03-2022 US PREG UMBILICAL ARTERY EXAMINATION: US PREG UMBILICAL ARTERY HISTORY: Single umbilical artery COMPARISON: No relevant comparison available. TECHNIQUE: Duplex Doppler evaluation of the umbilical arteries. FINDINGS: Single umbilical artery position: Cephalic presentation, longitudinal lie Amniotic fluid volume: 2.9 cm, largest fluid pocket 3.9 cm Heart rate: 148 bpm Proximal umbilical artery: PSV/EDV 113/53 cm/s, resistive index 0.53. Ratio 2.1 Mid umbilical artery: PSV/EDV 110/53 cm/s, resistive index 0.68. Ratio 2.1 Distal umbilical artery: PSV/EDV 77/48 cm/s. Resistive index 0.38, ratio 1.6 Forward flow throughout diastole Gestational age by ultrasound: 34 weeks 1 day IMPRESSION: Normal exam. Class 0 Umbilical Artery: Class 0 = Normal umbilical artery blood velocity Class I = increased RI or PI, but still forward flow in diastole Class II = Absent end diastolic flow (AEDF) Class III = Reversal of end diastolic flow (REDF) Resistive Index (RI)<1 Systolic/Diastolic ratio (S:D): An S:D ratio of 2-3 after 34 wks is normal Systolic/Diastolic ratio (S:D): Age 16: 3.01 for the 10th percentile, 4.25 for the 50th percentile, 6.07 for the 90th percentile Age 20: 3.16 for the 10th percentile, 4.04 for the 50th percentile, 5.24 for the 90th percentile Age 24: 2.70 for the 10th percentile, 3.50 for the 50th percentile, 4.75 for the 90th percentile Age 28: 2.41 for the 10th percentile, 3.02 for the 50th percentile, 3.97 for the 90th percentile Age 30: 2.43 for the 10th percentile, 3.04 for the 50th percentile, 3.80 for the 90th percentile Age 32: 2.27 for the 10th percentile, 2.73 for the 50th percentile, 3.57 for the 90th percentile Age 34: 2.08 for the 10th percentile, 2.52 for the 50th percentile, 3.41 for the 90th percentile Age 36: 1.96 for the 10th percentile, 2.35 for the 50th percentile, 3.15 for the 90th percentile Age 38: 1.89 for the 10th percentile, 2.24 for the 50th percentile, 3.10 for the 90th percentile Age 40: 1.88 for the 10th percentile, 2.22 for the 50th percentile, 2.68 for the 90th percentile Age 41: 1.93 for the 10th percentile, 2.21 for the 50th percentile, 2.55 for the 90th percentile Age 42: 1.91 for the 10th percentile, 2.51 for the 50th percentile, 3.21 for the 90th percentile Uteroplacental Artery: Resistive Index (RI): Normal=<0.55 High Resistance=Bilateral notches (after 26 wks) and RI>0.55. Unilateral notches (after 26 wks) and RI>0.65 Systolic/Diastolic ratio (S:D) = 2-3 is normal after 32 weeks. Electronically authenticated by: LIZA HARMON Date: 2022-07-03 15:05 [facility] Kiton 05-22-2022 Dennis Kit Forwarded to [facility] Comment on above: Performed By: #### N ATER #### [facility] [employer] [address] [id number] Utility Forester: Jossue Sinclair MD PAP ACOG PANEL 2: to on 05-19-[address] [facility] Comment on above: Performed By: #### H CVPCRR #### [facility] [address] [place] [address] Dr. Magnus Kraus Age Gdln ACOG Testing - [facility] Comment on above: Performed By: #### H CVPCRR #### [facility] [address] [place] [address] Dr. Magnus Kraus DIAGNOSIS: Comment [facility] Comment on above: Result Comment: NEGA TIVE FOR INTRAEPITHELIAL LESION OR MALIGNANCY. Performed By: #### H CVPCRR #### [facility] [address] [place] [address] Dr. Magnus Kraus Methodology: Comment [facility] Comment on above: Result Comment: This liquid based ThinPrep(R) pap test was screened with the use of an image guided system. Performed By: #### H CVPCRR #### [facility] [address] [address] [address] Magnus Kraus Note: Comment Normal [facility] Comment on above: Result Comment: The Pap smear is a screening test designed to aid in the detection of premalignant and malignant conditions of the uterine cervix. It is not a diagnostic procedure and should not be used as the sole means of detecting cervical cancer. Both false-positive and false-negative reports do occur. . Performed By: #### H CVPCRR #### [facility] [address] [address] [address] Magnus Kraus Performed by: Comment Normal [facility] Comment on above: Result Comment: Ernestina Rowell, Political Science Faculty Member (ASCP) Performed By: #### H CVPCRR #### [facility] [address] [place] [address] Dr. Magnus Kraus Reflex Criteria: Comment Normal [facility] Comment on above: Result Comment: The HPV DNA reflex criteria were not met with this specimen result therefore, no HPV testing was performed. . Performed By: #### H CVPCRR #### [facility] [address] [place] [address] Dr. Magnus Kraus Specimen adequacy: Comment Normal [facility] [place] Comment on above: Result Comment: Sati sfactory for evaluation. No endocervical component is identified. Performed By: #### H CVPCRR #### [facility] [address] [place] [address] Dr. Magnus Kraus CHLAMYDIA/GONOCOCCUS NAPOLEON (SW AB/URINE/PAPon 05-14-2022 Chlamydia trachomatis, [place]LEON Negative Normal Negative [facility] Comment on above: Performed By: #### H CVPCRR #### [facility] [address] [address] [address] Magnus Kraus Neisseria gonorrhoeae, NAPOLEON Negative Normal Negative [facility] Comment on above: Performed By: #### H CVPCRR #### [facility] [address] [place] [address] Dr. Magnus Kraus VAGINITIS/VAGINOSIS DNA PROB Yoel 05-14-2022 Ngozi species Negative Normal Negative [facility] Comment on above: Performed By: #### H CVPCRR #### [facility] [address] [address] [address] Magnus Kraus Gardnerella vaginalis Negative Normal Negative [facility] Comment on above: Performed By: #### H CVPCRR #### [facility] [address] [address] [address] Magnus Kraus Trichomonas vaginalis Negative Normal Negative [facility] Comment on above: Performed By: #### H CVPCRR #### [facility] [address] [address] [address] Magnus Kraus GLUCOSE - 1HRon 05-13-2022 Glucose [Mass/Vol] 114 mg/dL Critically high 74-106 [facility] Comment on above: Performed By: #### G LU1HR #### [facility] [address] [place] [address] Dr. Magnus Kraus HEMOGRAM AND PLATELon 2022 Hematocrit (Bld) [Volume fraction] 37.5 % Normal 36.0-48.0 [facility] Comment on above: Performed By: #### H H #### [facility] [address] [place] [address] Dr. Magnus Kraus Hemoglobin (Bld) [Mass/Vol] 12.6 g/dL Normal 12.0-16.0 [facility] Comment on above: Performed By: #### H H #### [facility] [address] [place] [address] Dr. Magnus Kraus MCH (RBC) [Entitic mass] 30.7 pg Normal 26.7-34.0 [facility] Comment on above: Performed By: #### H H #### [facility] [address] [place] [address] Dr. Magnus Kraus MCHC (RBC) [Mass/Vol] 33.6 g/dL Normal 29.9-35.2 [facility] Comment on above: Performed By: #### H H #### [facility] [address] [place] [address] Dr. Magnus Kraus MCV (RBC) [Entitic vol] 91.5 fL Normal 81.0-99.0 [facility] Comment on above: Performed By: #### H H #### [facility] [address] [place], [place] [address] Dr. Magnus Kraus PLT 228 103/ul Normal 150-450 [facility] Comment on above: Performed By: #### H H #### [facility] [address] [place], [place] [address] Dr. Magnus Kraus RBC 4.10 106/ul Critically low 4.20-5.40 [facility] Comment on above: Performed By: #### H H #### [facility] [address] [place], [place] [address] Dr. Magnus Kraus WBC 10.7 103/ul Normal 4.0-11.0 [facility] Comment on above: Performed By: #### H H #### [facility] [address] [place], [place] [address] Dr. Magnus Kraus US PREG ANATOMY SINGLEon US PREG ANATOMY SINGLE EXAMINATION: US P REG ANATOMY SINGLE HISTORY: anatomy study COMPARISON: No relevant comparison available. TECHNIQUE: Transabdominal sonographic examination was performed for obstetrical and evaluation. FINDINGS: Number: 1 Heart Rate: 141.0 bpm H.B. /min Amniotic Fluid Volume: Subjectively normal position: Variable presentation and lie Placental Location: ANTERIOR, placental edge 5.2 cm from the os, grade 0 Cervix Length: 4.3 cm, closed Normal structures: Cerebellum. Choroid plexus. Cisterna magna. Lateral cerebral ventricles. Orbits. Midline falx. Hard palate. 4-chamber heart. RVOT. LVOT. Stomach. Kidneys. Bladder. Umbilical cord insertion into abdomen. Cervical spine. Thoracic spine. Lumbar spine. Sacral spine. Right upper extremity. Left upper extremity. Right lower extremity. Left lower extremity. Suboptimally seen: None. Abnormalities/Other: 2 vessel cord BIOMETRY: BPD: 4.6 cm 20 weeks 0 days , 17% HC: 18.8 cm 21 weeks 0 days, 51% AC: 16.5 cm 21 weeks 4 days, 66% FL: 3.5 cm 21 weeks 1 days, 53% EFW:412.8 grams; 15 ounces, 69% FL/AC: 21.5 FL/BPD: 76.5 HC/AC: 1.1 GESTATIONAL AGE: Age by EDC: 20 weeks 6 days ANTOINE by EDC: 08/27/2022 Age by current US: 21 weeks 0 days ANTOINE by current US: 08/26/2022 IMPRESSION: 2 vessel cord otherwise normal anatomy scan *Reference: [employer] Practice Guideline for the performance of Obstetric Ultrasound Examinations, January 04, 2007. Electronically authenticated by: LIZA HARMON Date: 2022-04-15 09:54 Normal [facility] Serum or plasma alanine marks otransferase measurement without P-5'-P (enzymatic activiOrdered By: Sera Espino on 04-10-2022 ALT No additional P-5'-P [Catalytic activity/Vol] 14 U/L [facility] AFP MATERNAL FOR SPINA BIFID Aon 04-03-2022 AFP MoM 1.89 Normal [facility] Comment on above: Performed By: #### H CVPCRR #### [facility] [address] [address] [address] Magnus Kraus AFP Value 90.8 ng/mL Normal [facility] Comment on above: Performed By: #### H CVPCRR #### [facility] [address] [address] [address] Mangus Kraus AFP, Serum for Spina Bifida Report Normal [facility] Comment on above: Performed By: #### H CVPCRR #### [facility] [address] [address] [address] Magnus Kraus Comment Comment Normal [facility] Comment on above: Result Comment: Kyle Carrera, Ph.D., [facility] Director . References: Available Upon Request. . Multiples Of Median Cutoffs For AFP Elevations Fontanez 2.5 Black 2.8 IDD 2.0 Twins 4.5 Abbreviation Definitions IDD - Insulin Dep Diabetes OSBR - Open Spina Bifida Risk . For further inquiries contact [email or web address] at [phone]. . This test was developed and its performance characteristics determined by [employer]. It has not been cleared or approved by the Food and Drug Administration. Performed By: #### H CVPCRR #### [facility] [address] [address] [address] Magnus Kraus Gest Age Collection Date 18.7 weeks Normal [facility] Comment on above: Performed By: #### H CVPCRR #### [facility] [address] [address] [address] Magnus Kraus Gestat, Age Based on ANTOINE Normal [facility] Comment on above: Result Comment: 08/05 Recalculations are not recommended when gestational dating by LMP and ultrasound are within 10 days. Performed By: #### H CVPCRR #### [facility] [address] [address] [address] Magnus Kraus Insulin Dep Diabetes No Normal [facility] Comment on above: Performed By: #### H CVPCRR #### [facility] [address] [address] [address] Magnus Kraus Interpretation Comment Normal [facility] Comment on above: Result Comment: Inte rpretation: Screen Negative . This result is screen negative for OSB. The AFP MoM calculated is based on the gestational age provided. MS-AFP can identify up to 80% of open neural tube defects. Closed neural tube defects and some open defects may not be detected by this test. This test does not screen for Down Syndrome or Trisomy 18. If screening for Down Syndrome or Trisomy 18 is desired, contact [employer] to discuss available options. The [employer] recommends amniocentesis be offered to women age 35 and older. Performed By: #### H CVPCRR #### [facility] [address] [address] [address] Magnus Kraus [age] Normal [facility] Comment on above: Performed By: #### H CVPCRR #### [facility] [address] [address] [address] Magnus Kraus Multiple Gestation No Normal [facility] Comment on above: Performed By: #### H CVPCRR #### [facility] [address] [address] [address] Magnus Kraus OSBR Risk 1 IN 1034 Normal [facility] Comment on above: Performed By: #### H CVPCRR #### [facility] [address] [address] [address] Magnus Kraus PDF . Normal [facility] Comment on above: Performed By: #### H CVPCRR #### [facility] [address] [address] [address] Magnus Kraus Race Normal [facility] Comment on above: Performed By: #### H CVPCRR #### [facility] [address] [place] [address] Dr. Magnus Kraus Test Results: Negative Normal [facility] Comment on above: Performed By: #### H CVPCRR #### [facility] [address] [place] [address] Dr. Magnus Kraus HEP B SURFACE ANTIGEN SCREEN on 02-09-2022 HBsAg Screen Negative Normal Negative [facility] Comment on above: Performed By: #### H CVPCRR #### [facility] [address] [place] [address] Dr. Magnus Kraus HEPATITIS C VIRUS AB W/ REFL EX QUANTon 02-09-2022 HCV AB 0.1 s/co ratio Normal 0.0-0.9 [facility] Comment on above: Performed By: #### H CVPCRR #### [facility] [address] [place] [address] Dr. Magnus Kraus Interpretation: Comment Normal [facility] Comment on above: Result Comment: Nega tive Not infected with HCV, unless recent infection is suspected or other evidence exists to indicate HCV infection. Performed By: #### H CVPCRR #### [facility] [address] [place] [address] Dr. Magnus Kraus HIV 1 AND 2 WITH REFLEXon HIV Screen 4th Generation wRfx Non-Reactive Normal Non Reactive [facility] Comment on above: Result Comment: HIV Negative HIV-1/HIV-2 antibodies and HIV-1 p24 antigen were NOT detected. There is no laboratory evidence of HIV infection. Performed By: #### H IV12 #### [facility] [address] [place] [address] Dr. Magnus Kraus RPR QUANTon 02-09-2022 Rapid Plasma Reagin, Quant Non-Reactive Normal NonRea<1:1 [facility] Comment on above: Result Comment: Tyrese sharpe Note: This test does not meet current guidelines for screening and diagnosis of syphilis. This test is intended for following treatment response in patients being treated for syphilis infection. To screen for syphilis infection, a reflex cascade that includes both RPR and a treponema-specific assay should be utilized, such as Treponema pallidum (Syphilis) Screening [place] (403468) or Rapid Plasma Reagin (RPR) Test With Reflex to Quantitative RPR and Confirmatory Treponema pallidum Antibodies (371531). Performed By: #### R PRQ #### [facility] [address] [place] [address] Dr. Magnus Kraus RUBELLA AB IGGon 02-09-2022 Rubella Antibodies, IgG 1.21 index Normal Immu ne >0.99 [facility] Comment on above: Result Comment: Non- immune <0.90 Equivocal 0.90 - 0.99 Immune >0.99 Performed By: #### R UBIGG #### [facility] [address] [place] [address] Dr. Magnus Kraus CBC AUTO DIFFon 02-08-2022 BASO # 0.0 103/ul Normal 0.0-0.1 [facility] Comment on above: Performed By: #### H CVPCRR #### [facility] [address] [place] [address] Dr. Magnus Kraus Basophils/100 WBC (Bld) 0.3 % Normal 0.2-2.0 [facility] Comment on above: Performed By: #### H CVPCRR #### [facility] [address] [place] [address] Dr. Magnus Kraus EO # 0.2 103/ul Normal 0.0-0.7 [facility] Comment on above: Performed By: #### H CVPCRR #### [facility] [address] [place] [address] Dr. Magnus Kraus Eosinophils/100 WBC (Bld) 1.8 % Normal 0.9-7.0 [facility] Comment on above: Performed By: #### H CVPCRR #### [facility] [address] [place] [address] Dr. Magnus Kraus Erythrocyte distribution width (RBC) [Ratio] 13.3 % Normal 11.0-15.0 [facility] Comment on above: Performed By: #### H CVPCRR #### [facility] [address] [place] [address] Dr. Magnus Kraus Hematocrit (Bld) [Volume fraction] 38.7 % Normal 36.0-48.0 [facility] Comment on above: Performed By: #### H CVPCRR #### [facility] [address] [place] [address] Dr. Magnus Kraus Hemoglobin (Bld) [Mass/Vol] 13.5 g/dL Normal 12.0-16.0 [facility] Comment on above: Performed By: #### H CVPCRR #### [facility] [address] [place] [address] Dr. Magnus Kraus IG # 0.01 10e3/ul Normal 0.00-0.03 [facility] Comment on above: Performed By: #### H CVPCRR #### [facility] [address] [place] [address] Dr. Magnus Kraus IG % 0.1 % Normal 0.0-0.5 [facility] Comment on above: Performed By: #### H CVPCRR #### [facility] [address] [place] [address] Dr. Magnus Kraus LYMPH # 1.6 103/ul Normal 1.2-3.8 [facility] Comment on above: Performed By: #### H CVPCRR #### [facility] [address] [place] [address] Dr. Magnus Kraus Lymphocytes/100 WBC (Bld) 18.6 % Critically low 20.5-60.0 [facility] Comment on above: Performed By: #### H CVPCRR #### [facility] [address] [place] [address] Dr. Magnus Kraus MANUAL DIFF REQ NO Normal [facility] Comment on above: Performed By: #### H CVPCRR #### [facility] [address] [place] [address] Dr. Magnus Kraus MCH (RBC) [Entitic mass] 29.5 pg Normal 26.7-34.0 [facility] Comment on above: Performed By: #### H CVPCRR #### [facility] [address] [place] [address] Dr. Magnus Kraus MCHC (RBC) [Mass/Vol] 34.9 g/dL Normal 29.9-35.2 [facility] Comment on above: Performed By: #### H CVPCRR #### [facility] [address] [place] [address] Dr. Magnus Kraus MCV (RBC) [Entitic vol] 84.5 fL Normal 81.0-99.0 [facility] Comment on above: Performed By: #### H CVPCRR #### [facility] [address] [place] [address] Dr. Magnus Krasu MONO # 0.5 103/ul Normal 0.3-0.8 [facility] Comment on above: Performed By: #### H CVPCRR #### [facility] [address] [place] [address] Dr. Magnus Kraus Monocytes/100 WBC (Bld) 5.7 % Normal 1.7-12.0 [facility] Comment on above: Performed By: #### H CVPCRR #### [facility] [address] [place] [address] Dr. Magnus Kraus NEUT # 6.4 103/ul Normal 1.4-6.5 [facility] Comment on above: Performed By: #### H CVPCRR #### [facility] [address] [place] [address] Dr. Magnus Kraus Neutrophils/100 WBC (Bld) 73.5 % Normal 43.0-75.0 [facility] Comment on above: Performed By: #### H CVPCRR #### [facility] [address] [place] [address] Dr. Magnus Kraus Platelet mean volume (Bld) [Entitic vol] 11.0 fL Normal 9.5-13.5 [facility] Comment on above: Performed By: #### H CVPCRR #### [facility] [address] [place] [address] Dr. Magnus Kraus PLT 273 103/ul Normal 150-450 [facility] Comment on above: Performed By: #### H CVPCRR #### [facility] [address] [address] [address] Magnus Kraus RBC 4.58 106/ul Normal 4.20-5.40 [facility] Comment on above: Performed By: #### H CVPCRR #### [facility] [address] [address] [address] Magnus Kraus WBC 8.7 103/ul Normal 4.0-11.0 [facility] Comment on above: Performed By: #### H CVPCRR #### [facility] [address] [place] [address] Dr. Magnus Kraus CULTURE URINEon 02-08-2022 CULTURE URINE Culture Observations : MODERATE GROWTH OF MIXED GENITAL JANELLE. NO POTENTIAL PATHOGENS SEEN. Normal [facility] Comment on above: Performed By: #### H H #### [facility] [address] [place] [address] Dr. Magnus Kraus GLYCOHEMOGLOBIN A1Con 2021 ADA RECOMMENDATION SEE BELOW Normal [facility] Comment on above: Result Comment: ADA RECOMMENDED LIMIT 4.0 - 6.0 ADA THERAPEUTIC TARGET < 7.0 ACTION SUGGESTED > 7.0 Performed By: #### H H #### [facility] [address] [place] [address] Dr. Magnus Kraus Glucose [Mass/Vol] 100 mg/dL Normal [facility] Comment on above: Performed By: #### H H #### [facility] [address] [place] [address] Dr. Magnus Kraus HbA1c (Bld) [Mass fraction] 5.1 % Normal 4.5-6.2 [facility] Comment on above: Performed By: #### H H #### [facility] [address] [address] [address] Magnus Kraus DENNIS BOX TEST PT SEND OUTo n 02-08-2022 SENT TO REF LAB 02/08/22 Normal [facility] Comment on above: Performed By: #### N BOX #### [facility] [address] [address] [address] Magnus Kraus TYPE AND SCREENon 02-08-2022 TYPE AND SCREEN Negative Normal [facility] Comment on above: Performed By: #### H H #### [facility] [address] [address] [address] Magnus Kraus Blood hemoglobin measurement (mass/volume)Ordered By: Sera Espino on 01-14-2022 Hemoglobin (Bld) [Mass/Vol] 13.8 g/dL 11.8-15.4 [facility] Body fluid albumin measureme nt (mass/volume)Ordered By: Sera Espino on 01-14-2022 Albumin (Body fld) [Mass/Vol] 3.6 g/dL 3.2-5.5 [facility] Cholesterol [Mass/volume] in Serum or PlasmaOrdered By: Sera Espino on 01-14-2022 Cholesterol [Mass/Vol] 160 mg/dL 140-200 [facility] Comment on above: Chol less than 200 m g/dl low riskChol 201-239 mg/dl borderline riskChol 240 mg/dl and greater high risk Cholesterol in LDL Calc [Mas s/Vol]Ordered By: Sera Espino on 01-14-2022 Cholesterol in LDL [Mass/Vol] 93 mg/dL 0-100 [facility] Comment on above: LDL ATP III CLASSIFI CATIONLDL less than 100 mg/dL OptimalLDL 100-129 mg/dL Near or above optimalLDL 130-159 mg/dL Borderline highLDL 160-189 mg/dL HighLDL greater than 189 mg/dL Very high Cholesterol in VLDL Calc [Ma ss/Vol]Ordered By: Sera Espino on 01-14-2022 Cholesterol in VLDL [Mass/Vol] 11 mg/dL [facility] Comprehensive Metabolic Empo n 01-14-2022 Albumin [Mass/Vol] 3.6 g/dL Normal 3.2-5.5 [facility] Comment on above: Performed By: #### E BS CMP, TSH3, CBCNO, LIPID #### [address] Albumin/Globulin [Mass ratio] 1.4 {ratio} Normal [facility] Comment on above: Performed By: #### E BS CMP, TSH3, CBCNO, LIPID #### [address] ALP [Catalytic activity/Vol] 32 U/L Normal 32-92 [facility] Comment on above: Performed By: #### E BS CMP, TSH3, CBCNO, LIPID #### [address] ALT [Catalytic activity/Vol] 15 U/L Normal 10-60 [facility] Comment on above: Performed By: #### E BS CMP, TSH3, CBCNO, LIPID #### [address] Anion gap [Moles/Vol] 16.1 mmol/L High 6.0-15.0 [facility] Comment on above: Performed By: #### E BS CMP, TSH3, CBCNO, LIPID #### [address] AST [Catalytic activity/Vol] 16 U/L Normal 10-42 [facility] Comment on above: Performed By: #### E BS CMP, TSH3, CBCNO, LIPID #### [address] Bilirubin [Mass/Vol] 0.6 mg/dL Normal 0.3-1.2 [facility] Comment on above: Performed By: #### E BS CMP, TSH3, CBCNO, LIPID #### [address] Calcium [Mass/Vol] 9.3 mg/dL Normal 8.2-10.2 [facility] Comment on above: Performed By: #### E BS CMP, TSH3, CBCNO, LIPID #### [facility] [address] Chloride [Moles/Vol] 99 mmol/L Normal 95-114 [facility] Comment on above: Performed By: #### E BS CMP, TSH3, CBCNO, LIPID #### [facility] [address] CO2 [Moles/Vol] 22.0 mmol/L Normal 22.0-30.0 [facility] Comment on above: Performed By: #### E BS CMP, TSH3, CBCNO, LIPID #### [facility] [address] Creatinine [Mass/Vol] 0.60 mg/dL Normal 0.44-1.03 [facility] Comment on above: Performed By: #### E BS CMP, TSH3, CBCNO, LIPID #### [address] Estimated GFR ( Luh > 60 [facility] Comment on above: Result Comment: GFR estimated reference range: According to KDOQI guidelines, <60 ml/min/1.73m2 is sufficient to diagnose a patient with chronic kidney disease. Performed By: #### E BS CMP, TSH3, CBCNO, LIPID #### [address] Estimated GFR (Non- Am > 60 [facility] Comment on above: Performed By: #### E BS CMP, TSH3, CBCNO, LIPID #### [facility] [address] Globulin (S) [Mass/Vol] 2.5 g/dL Normal [facility] Comment on above: Performed By: #### E BS CMP, TSH3, CBCNO, LIPID #### [facility] [address] Glucose [Mass/Vol] 77 mg/dL Normal 70-100 [facility] Comment on above: Performed By: #### E BS CMP, TSH3, CBCNO, LIPID #### [facility] [address] Potassium [Moles/Vol] 4.1 mmol/L Normal 3.5-5.1 [facility] Comment on above: Performed By: #### E BS CMP, TSH3, CBCNO, LIPID #### [facility] [address] [place] [address] [place] Protein [Mass/Vol] 6.1 g/dL Normal 6.1-7.9 [facility] Comment on above: Performed By: #### E BS CMP, TSH3, CBCNO, LIPID #### [facility] [address] Sodium [Moles/Vol] 133 mmol/L Low 136-146 [facility] Comment on above: Performed By: #### E BS CMP, TSH3, CBCNO, LIPID #### [facility] [address] [place] [address] [place] Urea nitrogen [Mass/Vol] 5 mg/dL Low 9-23 [facility] Comment on above: Performed By: #### E BS CMP, TSH3, CBCNO, LIPID #### [facility] [address] [place] [address] [place] Creatinine and Glomerular fi ltration rate.predicted panel (S/P/Bld)Ordered By: Sera Espino on 01-14-2022 Creatinine [Mass/Vol] 0.60 mg/dL 0.44-1.03 [facility] Erythrocyte distribution wid th Auto (RBC) [Ratio]Ordered By: Sera Espino on 01-14-2022 Erythrocyte distribution width (RBC) [Ratio] 14.1 % 11.9-15.3 [facility] Estimated glomerular filtrat ion rate (GFR) non- AmericanOrdered By: Sera Espino on 01-14-2022 GFR/1.73 sq M.predicted among non-blacks MDRD (S/P/Bld) [Vol rate/Area] > 60 mL/Min [facility] Globulin Calc (S) [Mass/Vol] Ordered By: Sera Espino on 01-14-2022 Globulin (S) [Mass/Vol] 2.5 g/dL F [facility] Hematocrit Auto (Bld) [Volum e fraction]Ordered By: Sera Espino on 01-14-2022 Hematocrit (Bld) [Volume fraction] 41.4 % 34.0-46.4 [facility] Hemogram CBC Without Diffon 01-14-2022 Erythrocyte distribution width (RBC) [Ratio] 14.1 % Normal 11.9-15.3 [facility] Comment on above: Performed By: #### E BS CMP, TSH3, CBCNO, LIPID #### [facility] [address] Hematocrit (Bld) [Volume fraction] 41.4 % Normal 34.0-46.4 [facility] Comment on above: Performed By: #### E BS CMP, TSH3, CBCNO, LIPID #### [address] Hemoglobin (Bld) [Mass/Vol] 13.8 g/dL Normal 11.8-15.4 [facility] Comment on above: Performed By: #### E BS CMP, TSH3, CBCNO, LIPID #### [address] MCH (RBC) [Entitic mass] 28.7 pg Normal 24.7-34.3 [facility] Comment on above: Performed By: #### E BS CMP, TSH3, CBCNO, LIPID #### [address] MCV (RBC) [Entitic vol] 86.0 fL Normal 80-[address] [facility] Comment on above: Performed By: #### E BS CMP, TSH3, CBCNO, LIPID #### [address] Mean Corpuscular HGB Conc 33.4 g/dL Normal 32.0-35.0 [facility] Comment on above: Performed By: #### E BS CMP, TSH3, CBCNO, LIPID #### [address] Platelet mean volume (Bld) [Entitic vol] 10.1 fL Normal 6.3-10.7 [facility] Comment on above: Result Comment: PERF ORMED BY: [place] [address] PATHOLOGIST [employer] SUPER[employer] JUJU AMAYA M.D. Performed By: #### E BS CMP, TSH3, CBCNO, LIPID #### [facility] [address] Platelets (Bld) [#/Vol] 230 10*3/uL Normal 150-450 [facility] Comment on above: Performed By: #### E BS CMP, TSH3, CBCNO, LIPID #### [facility] [address] RBC (Bld) [#/Vol] 4.81 10*6/uL Normal 3.60-5.00 [facility] Comment on above: Performed By: #### E BS CMP, TSH3, CBCNO, LIPID #### [address] WBC (Bld) [#/Vol] 8.0 10*3/uL Normal 3.8-11.6 [facility] Comment on above: Performed By: #### E BS CMP, TSH3, CBCNO, LIPID #### [address] Laboratory - Chemistry and C hemistry - challengeOrdered By: Sera Espino on 01-14-2022 Glucose [Mass/Vol] 77 mg/dL 70-100 [facility] Lipid Panelon 01-14-2022 Cholesterol [Mass/Vol] 160 mg/dL Normal 140-200 [facility] Comment on above: Result Comment: Chol less than 200 mg/dl low risk Chol 201-239 mg/dl borderline risk Chol 240 mg/dl and greater high risk Performed By: #### E BS CMP, TSH3, CBCNO, LIPID #### [address] Cholesterol in HDL [Mass/Vol] 56 mg/dL Normal 35-85 [facility] Comment on above: Result Comment: HDL CHOL ATP-III CLASSIFICATION Cardiovascular Risk HDL > or equal to 60 mg/dL LOW HDL < 40 mg/dL HIGH Performed By: #### E BS CMP, TSH3, CBCNO, LIPID #### [facility] [address] Cholesterol.total/Sally sterol in HDL [Mass ratio] 2.9 {ratio} Normal <5.0 [facility] Comment on above: Performed By: #### E BS CMP, TSH3, CBCNO, LIPID #### [facility] [address] LDL Cholesterol,Calculated 93 mg/dL Normal 0-100 [facility] Comment on above: Result Comment: LDL ATP III CLASSIFICATION LDL less than 100 mg/dL Optimal LDL 100-129 mg/dL Near or above optimal LDL 130-159 mg/dL Borderline high LDL 160-189 mg/dL High LDL greater than 189 mg/dL Very high Performed By: #### E BS CMP, TSH3, CBCNO, LIPID #### [address] Triglyceride w/Reflex 55 mg/dL Normal 35-149 [facility] Comment on above: Result Comment: TRIG ATP III CLASSIFICATION TRIG less than 150 mg/dL Normal TRIG 150-199 mg/dL Borderline high TRIG 200-500 mg/dL High TRIG greater than 500 mg/dL Very high Standard traceable to the Center for Disease Conrtrol and Prevention (CDC) test method. Performed By: #### E BS CMP, TSH3, CBCNO, LIPID #### [address] VLDL CHOLESTEROL 11 mg/dL Normal [facility] Comment on above: Performed By: #### E BS CMP, TSH3, CBCNO, LIPID #### [facility] [address] MCH Auto (RBC) [Entitic mass ]Ordered By: Sera Espino on 01-14-2022 MCH (RBC) [Entitic mass] 28.7 pg 24.7-34.3 [facility] MCHC Auto (RBC) [Mass/Vol]Or dered By: Sera Espino on 01-14-2022 MCHC (RBC) [Mass/Vol] 33.4 g/dL 32.0-35.0 [facility] MCV Auto (RBC) [Entitic vol] Ordered By: Sera Espino on 01-14-2022 MCV (RBC) [Entitic vol] 86.0 fL 80-[address] [facility] No Panel InformationOrdered By: Sera Espino on 01-14-2022 Estimated GFR () > 60 mL/Min [facility] Comment on above: GFR estimated refere nce range: According to KDOQI guidelines, <60 ml/min/1.73m2 is sufficient to diagnose a patient with chronic kidney disease. Pharmacy Creatinine Clearance (Chem N/A [facility] Platelet mean volume Auto (B ld) [Entitic vol]Ordered By: Sera Espino on 01-14-2022 Platelet mean volume (Bld) [Entitic vol] 10.1 fL 6.3-10.7 [facility] Platelets Auto (Bld) [#/Vol] Ordered By: Sera Espino on 01-14-2022 Platelets (Bld) [#/Vol] 230 10*3/uL 150-450 [facility] Protein [Mass/volume] in Ser um or PlasmaOrdered By: Sera Espino on 01-14-2022 Protein [Mass/Vol] 6.1 g/dL 6.1-7.9 [facility] RBC Auto (Bld) [#/Vol]Ordere d By: Sera Espino on 01-14-2022 RBC (Bld) [#/Vol] 4.81 10*6/uL 3.60-5.00 [facility] Serum or plasma alanine marks otransferase measurement without P-5'-P (enzymatic activiOrdered By: Sera Espino on 01-14-2022 ALT No additional P-5'-P [Catalytic activity/Vol] 15 U/L 10-60 [facility] Serum or plasma albumin/glob ulin mass ratioOrdered By: Sera Espino on 01-14-2022 Albumin/Globulin [Mass ratio] 1.4 {ratio} [facility] Serum or plasma alkaline alberto sphatase measurement (enzymatic activity/volume)Ordered By: Sera Espino on 01-14-2022 ALP [Catalytic activity/Vol] 32 U/L 32-92 [facility] Serum or plasma anion gap de terminationOrdered By: Sera Espino on 01-14-2022 Anion gap [Moles/Vol] 16.1 mmol/L 6.0-15.0 [facility] Serum or plasma aspartate am inotransferase measurement (enzymatic activity/volume)Ordered By: Sera Espino on 01-14-2022 AST [Catalytic activity/Vol] 16 U/L 10-42 [facility] Serum or plasma calcium trenton urement (mass/volume)Ordered By: Sera Espino on 01-14-2022 Calcium [Mass/Vol] 9.3 mg/dL 8.2-10.2 [facility] Serum or plasma chloride marcie surement (moles/volume)Ordered By: Sera Espino on 01-14-2022 Chloride [Moles/Vol] 99 mmol/L 95-114 [facility] Serum or plasma high density lipoprotein (HDL) cholesterol measurementOrdered By: Sera Espino on 01-14-2022 Cholesterol in HDL [Mass/Vol] 56 mg/dL 35-85 [facility] Comment on above: HDL CHOL ATP-III CLA SSIFICATION Cardiovascular RiskHDL > or equal to 60 mg/dL LOWHDL < 40 mg/dL HIGH Serum or plasma potassium me asurement (moles/volume)Ordered By: Sera Espino on 01-14-2022 Potassium [Moles/Vol] 4.1 mmol/L 3.5-5.1 [facility] Serum or plasma sodium measu rement (moles/volume)Ordered By: Sera Espino on 01-14-2022 Sodium [Moles/Vol] 133 mmol/L 136-146 [facility] Serum or plasma total biliru bin measurement (mass/volume)Ordered By: Sera Espino on 01-14-2022 Bilirubin [Mass/Vol] 0.6 mg/dL 0.3-1.2 [facility] Serum or plasma total carbon dioxide measurement (moles/volume)Ordered By: Sera Espino on 01-14-2022 CO2 [Moles/Vol] 22.0 mmol/L 22.0-30.0 [facility] Serum or plasma total choles terol/high density lipoprotein (HDL) cholesterol mass ratOrdered By: Sera Espino on 01-14-2022 Cholesterol.total/Sally sterol in HDL [Mass ratio] 2.9 {ratio} <5.0 [facility] Serum or plasma urea nitroge n measurement (mass/volume)Ordered By: Sera Espino on 01-14-2022 Urea nitrogen [Mass/Vol] 5 mg/dL 12-27 [facility] TSH DL <= 0.005 mIU/L QnOrde red By: Sera Espino on 01-14-2022 TSH Qn 1.00 m[IU]/L 0.45-5.33 [facility] Thyroid Stimulating Hormoneo n 01-14-2022 TSH Qn 1.00 m[IU]/L Normal 0.45-5.33 [facility] Comment on above: Result Comment: PERF ORMED BY: [place] [address] PATHOLOGIST TOUR PRODUCTION SUPERVISOR JUJU AMAYA M.D. Performed By: #### E BS CMP, TSH3, CBCNO, LIPID #### [address] Triglyceride [Mass/volume] i n Serum or PlasmaOrdered By: Sera Espino on 01-14-2022 Triglyceride [Mass/Vol] 55 mg/dL 35-[address] [facility] Comment on above: TRIG ATP III CLASSIF ICATIONTRIG less than 150 mg/dL NormalTRIG 150-199 mg/dL Borderline highTRIG 200-500 mg/dL High TRIG greater than 500 mg/dL Very highStandard traceable to the Center for Disease Conrtrol and Prevention (CDC) test method. WBC Auto (Bld) [#/Vol]Ordere d By: Sear Espino on 01-14-2022 WBC (Bld) [#/Vol] 8.0 10*3/uL 3.8-11.6 [facility] US PREG TVon 01-13-2022 US PREG TV EXAMINATION: US PREG TV HISTORY: Hemorrhagic complication of COMPARISON: Ultrasound transvaginal 12/31/2021 FINDINGS: GESTATIONAL SAC: Present and normal appearing. POLE: Present and normal appearing. YOLK SAC: Present. CARDIAC: Present. UTERUS: Normal size and appearance. OVARIES: Right: Collapsing corpus luteal cyst. Left: Normal. CERVIX: 4.2 cm in length and closed. CUL-DE-SAC: Normal. OTHER: None. AGE BY LMP: 7 weeks 5 days ANTOINE BY LMP: 08/27/2022 AGE BY US CRL: 7 weeks 5 days ANTOINE BY US CRL: 08/27/2022 IMPRESSION: 1. Single live intrauterine . Electronically authenticated by: KHALIF SZYMANSKI Date: 2022-01-13 16:48 Normal [facility] Alanine Aminotransferaseon 1 ALT [Catalytic activity/Vol] 15 U/L Normal [facility] Comment on above: Order Comment: Which is this, the Source or the Person with the Exposure?: EXPOSURE Source Medical Record: UNK Exposed Result Comment: PERF ORMED BY: [place] [address] PATHOLOGIST TOUR PRODUCTION SUPERVISOR JUJU AMAYA M.D. Performed By: #### H BSAG, HCV RX PCR, HIV SCREEN, HBSAB #### [facility] , #### ALT #### [address] HIV 1/O/2 Antigen/Antibodyon 01-06-2022 HIV Screen 4th Generation Non-Reactive Normal Non Reactive [facility] Comment on above: Order Comment: Which is this, the Source or the Person with the Exposure?: EXPOSURE Source Medical Record: UNK Exposed Result Comment: HIV Negative HIV-1/HIV-2 antibodies and HIV-1 p24 antigen were NOT detected. There is no laboratory evidence of HIV infection. Performed at: [address] [id number] Utility Forester: Aurelio Vivar PhD, Phone: [phone] PERFORMED BY: [place] [address] PATHOLOGIST TOUR PRODUCTION SUPERVISOR JUJU AMAYA M.D. Performed By: #### H BSAG, HCV RX PCR, HIV SCREEN, HBSAB #### [facility] , #### ALT #### [address] HIV 1 and HIV-2 antibody ass ay with HIV-1 p24 antigen detectionOrdered By: Sera Espino on 01-06-2022 HIV 1+2 Ab+HIV1 p24 Ag IA Ql Non-Reactive Non Reactive [facility] Comment on above: HIV NegativeHIV-1/HI V-2 antibodies and HIV-1 p24 antigen were NOTdetected. There is no laboratory evidence of HIV infection.Performed at: [facility] [employer] [id number] Director: Aurelio Vivar PhD, Phone: [phone] Hep C Ab wRfx to Qnt PCRon 1 Hepatitis C Virus Antibody <0.1 Normal 0.0-0.9 [facility] Comment on above: Order Comment: Which is this, the Source or the Person with the Exposure?: EXPOSURE Source Medical Record: UNK Exposed Performed By: #### H BSAG, HCV RX PCR, HIV SCREEN, HBSAB #### [facility] , #### ALT #### [address] Interpretation Hepatitis C Normal . [facility] Comment on above: Order Comment: Which is this, the Source or the Person with the Exposure?: EXPOSURE Source Medical Record: UNK Exposed Result Comment: Nega tive Not infected with HCV, unless recent infection is suspected or other evidence exists to indicate HCV infection. Performed By: #### H BSAG, HCV RX PCR, HIV SCREEN, HBSAB #### [facility] , #### ALT #### [address] Hepatitis B Surface Antibody on 01-06-2022 Hepatitis B Surface Antibody Reactive Normal . [facility] Comment on above: Order Comment: Which is this, the Source or the Person with the Exposure?: EXPOSURE Source Medical Record: UNK Exposed Result Comment: Non Reactive: Inconsistent with immunity, less than 10 mIU/mL Reactive: Consistent with immunity, greater than 9.9 mIU/mL Performed By: #### H BSAG, HCV RX PCR, HIV SCREEN, HBSAB #### [facility] , #### ALT #### [facility] [address] [place] [address] [place] Hepatitis B Surface Antigeno n 01-06-2022 HBsAg Screen Negative Normal Negative [facility] Comment on above: Order Comment: Which is this, the Source or the Person with the Exposure?: EXPOSURE Source Medical Record: UNK Exposed Result Comment: Perf ormed at: [facility] [place] [address] [address] Utility Forester: Aurelio Vivar PhD, Phone: [phone] Performed By: #### H BSAG, HCV RX PCR, HIV SCREEN, HBSAB #### [facility] , #### ALT #### [facility] [address] Hepatitis B virus surface Ag [Presence] in Serum or Plasma by ImmunoassayOrdered By: Sera Espino on 01-06-2022 HBV surface Ag IA Ql Negative Negative [facility] Comment on above: Performed at: [employer] [id number] [place], [place] [id number] Director: Aurelio Vivar PhD, Phone: [phone] No Panel InformationOrdered By: Sera Espino on 01-06-2022 Hepatitis C Interpretation See comment . [facility] Comment on above: NegativeNot infected with HCV, unless recent infection issuspected or other evidence exists to indicate HCVinfection. Serum hepatitis B virus surf jorge antibody detectionOrdered By: Sera Espino on 01-06-2022 HBV surface Ab Ql (S) Reactive . [facility] Comment on above: Non Reactive: Incons istent with immunity, less than 10 mIU/mL Reactive: Consistent with immunity, greater than 9.9 mIU/mL Serum or plasma alanine marks otransferase measurement without P-5'-P (enzymatic activiOrdered By: Sera Rileyyder on 01-06-2022 ALT No additional P-5'-P [Catalytic activity/Vol] 15 U/L [facility] Serum or plasma hepatitis C virus antibody signal/cutoff ratio by immunoassay (relatiOrdered By: Seraandria Espino on 01-06-2022 HCV Ab Signal/Cutoff IA [Rel units/Vol] <0.1 s/co ratio 0.0-0.9 [facility] US PREG TVon 01-01-2022 US PREG TV EXAMINATION: US PREG TV HISTORY: Threatened COMPARISON: No relevant comparison available. FINDINGS: GESTATIONAL SAC: Present and normal appearing. POLE: Present and normal appearing. YOLK SAC: Present. CARDIAC: Present. UTERUS: Normal size and appearance. OVARIES: Right: Corpus lutein cyst. Left: Normal. CERVIX: 3.7 cm in length and closed. CUL-DE-SAC: Normal. OTHER: None. AGE BY LMP: 5 weeks 6 days ANTOINE BY LMP: 08/27/2022 AGE BY US CRL: 6 weeks 1 day ANTOINE BY US CRL: 08/25/2022 IMPRESSION: 1. Single live intrauterine . No ultrasound findings to suggest impending . Electronically authenticated by: KHALIF SZYMANSKI Date: 2022-01-01 06:59 Normal [facility] Alanine Aminotransferaseon 0 11-18-2021 ALT [Catalytic activity/Vol] 13 U/L Normal [facility] Comment on above: Result Comment: PERF ORMED BY: [place] [address] PATHOLOGIST TOUR PRODUCTION SUPERVISOR JUJU AMAYA M.D. Performed By: #### E BS CMP, TSH3, CBCNO, LIPID #### [address] HIV 1/O/2 Antigen/Antibodyon 11-18-2021 HIV Screen 4th Generation Non-Reactive Normal Non Reactive [facility] Comment on above: Result Comment: HIV Negative HIV-1/HIV-2 antibodies and HIV-1 p24 antigen were NOT detected. There is no laboratory evidence of HIV infection. Performed at: [address] [id number] Utility Forester: Aurelio Vivar PhD, Phone: [phone] PERFORMED BY: [place] [address] PATHOLOGIST TOUR PRODUCTION SUPERVISOR JUJU AMAYA M.D. Performed By: #### E BS CMP, TSH3, CBCNO, LIPID #### [address] HIV 1 and HIV-2 antibody ass ay with HIV-1 p24 antigen detectionOrdered By: Sera Espino on 11-18-2021 HIV 1+2 Ab+HIV1 p24 Ag IA Ql Non-Reactive Non Reactive [facility] Comment on above: HIV Negative HIV-1/HIV-2 antibodies and HIV-1 p24 antigen were NOT detected. There is no laboratory evidence of HIV infection. Performed at: [address] [id number] Utility Forester: Aurelio Vivar PhD, Phone: [phone] HIV NegativeHIV-1/HI V-2 antibodies and HIV-1 p24 antigen were NOTdetected. There is no laboratory evidence of HIV infection.Performed at: [address] [id number] Director: Aurelio Vivar PhD, Phone: [phone] Hep C Ab wRfx to Qnt PCRon 0 11-18-2021 Hepatitis C Virus Antibody <0.1 Normal 0.0-0.9 [facility] Comment on above: Performed By: #### E BS CMP, TSH3, CBCNO, LIPID #### [facility] [address] [place] [address] Interpretation Hepatitis C Normal . [facility] Comment on above: Result Comment: Nega tive Not infected with HCV, unless recent infection is suspected or other evidence exists to indicate HCV infection. Performed By: #### E BS CMP, TSH3, CBCNO, LIPID #### [facility] [address] [place] [address] Hepatitis B Surface Antigeno n 11-18-2021 HBsAg Screen Negative Normal Negative [facility] Comment on above: Result Comment: Perf ormed at: [facility] [place] [address] Utility Forester: Aurelio Vivar PhD, Phone: [phone] PERFORMED BY: [place] [address] PATHOLOGIST TOUR PRODUCTION SUPERVISOR JUJU AMAYA M.D. Performed By: #### E BS CMP, TSH3, CBCNO, LIPID #### [address] Hepatitis B virus surface Ag [Presence] in Serum or Plasma by ImmunoassayOrdered By: Sera Espino on 11-18-2021 HBV surface Ag IA Ql Negative Negative [facility] Comment on above: Performed at: [employer] [address] [id number] Utility Forester: Aurelio Vivar PhD, Phone: [phone] Performed at: [facility] [address] [id number] Director: Aurelio Vivar PhD, Phone: [phone] No Panel InformationOrdered By: Sera Espino on 11-18-2021 Hepatitis C Interpretation See comment . [facility] Comment on above: Negative Not infected with HCV, unless recent infection is suspected or other evidence exists to indicate HCV infection. NegativeNot infected with HCV, unless recent infection issuspected or other evidence exists to indicate HCVinfection. Hepatitis C RNA Quantitative N/A [facility] Serum or plasma alanine marks otransferase measurement without P-5'-P (enzymatic activiOrdered By: Sera Espino on 11-18-2021 ALT No additional P-5'-P [Catalytic activity/Vol] 13 U/L [facility] Serum or plasma hepatitis C virus antibody signal/cutoff ratio by immunoassay (relatiOrdered By: Sera Espino on 11-18-2021 HCV Ab Signal/Cutoff IA [Rel units/Vol] <0.1 s/co ratio 0.0-0.9 [facility] Alanine Aminotransferaseon 0 10-07-2021 ALT [Catalytic activity/Vol] 16 U/L Normal -60 [facility] Comment on above: Order Comment: Which is this, the Source or the Person with the Exposure?: EXP Source Medical Record: [id number] Exposed Result Comment: PERF ORMED BY: [place] [address] PATHOLOGIST TOUR PRODUCTION SUPERVISOR JUJU AMAYA M.D. Performed By: #### E BS CMP, TSH3, CBCNO, LIPID #### [facility] [address] [place], [place] [id number] [facility] HIV 1/O/2 Antigen/Antibodyon 10-07-2021 HIV Screen 4th Generation Non-Reactive Normal Non Reactive [facility] Comment on above: Order Comment: Which is this, the Source or the Person with the Exposure?: EXP Source Medical Record: [id number] Exposed Result Comment: HIV Negative HIV-1/HIV-2 antibodies and HIV-1 p24 antigen were NOT detected. There is no laboratory evidence of HIV infection. PERFORMED BY: [place] [address] PATHOLOGIST TOUR PRODUCTION SUPERVISOR JUJU AMAYA M.D. Performed By: #### E BS CMP, TSH3, CBCNO, LIPID #### [facility] [address] [place] [address] HIV 1 and HIV-2 antibody ass ay with HIV-1 p24 antigen detectionOrdered By: Jun Padron on 10-07-2021 HIV 1+2 Ab+HIV1 p24 Ag IA Ql Non-Reactive Non Reactive [facility] Comment on above: HIV Negative HIV-1/HIV-2 antibodies and HIV-1 p24 antigen were NOT detected. There is no laboratory evidence of HIV infection. Hep C Ab wRfx to Qnt PCRon 0 10-07-2021 Hepatitis C Virus Antibody <0.1 Normal 0.0-0.9 [facility] Comment on above: Order Comment: Which is this, the Source or the Person with the Exposure?: EXP Source Medical Record: [id number] Exposed Performed By: #### E BS CMP, TSH3, CBCNO, LIPID #### [facility] [address] [id number] [facility] Interpretation Hepatitis C Normal . [facility] Comment on above: Order Comment: Which is this, the Source or the Person with the Exposure?: EXP Source Medical Record: [id number] Exposed Result Comment: Davy tivenu Not infected with HCV, unless recent infection is suspected or other evidence exists to indicate HCV infection. Performed By: #### E BS CMP, TSH3, CBCNO, LIPID #### [facility] [address] [id number] [facility] Hepatitis B Surface Antibody on 10-07-2021 Hepatitis B Surface Antibody Reactive Normal . [facility] Comment on above: Order Comment: Which is this, the Source or the Person with the Exposure?: EXP Source Medical Record: [id number] Exposed Result Comment: Non Reactive: Inconsistent with immunity, less than 10 mIU/mL Reactive: Consistent with immunity, greater than 9.9 mIU/mL Verified by repeat analysis Performed By: #### E BS CMP, TSH3, CBCNO, LIPID #### [place] [id number] [facility] Hepatitis B Surface Antigeno n 10-07-2021 HBsAg Screen Negative Normal Negative [facility] Comment on above: Order Comment: Which is this, the Source or the Person with the Exposure?: EXP Source Medical Record: [id number] Exposed Result Comment: Perf ormed at: - [facility] [address] [id number] Utility Forester: Aurelio Vivar PhD, Phone: [phone] Performed By: #### E BS CMP, TSH3, CBCNO, LIPID #### [address] Hepatitis B virus surface Ag [Presence] in Serum or Plasma by ImmunoassayOrdered By: Jun Padron on 10-07-2021 HBV surface Ag IA Ql Negative Negative [facility] Comment on above: Performed at: [facility] [address] [id number] Utility Forester: Aurelio Vivar PhD, Phone: [phone] No Panel InformationOrdered By: Jun Padron on 10-07-2021 Hepatitis C Interpretation See comment . [facility] Comment on above: Negative Not infected with HCV, unless recent infection is suspected or other evidence exists to indicate HCV infection. Serum hepatitis B virus surf jorge antibody detectionOrdered By: Jun Padron on 10-07-2021 HBV surface Ab Ql (S) Reactive . [facility] Comment on above: Non Reactive: Incons istent with immunity, less than 10 mIU/mL Reactive: Consistent with immunity, greater than 9.9 mIU/mL Verified by repeat analysis Serum or plasma alanine marks otransferase measurement without P-5'-P (enzymatic activiOrdered By: Jun Padron on 10-07-2021 ALT No additional P-5'-P [Catalytic activity/Vol] 16 U/L 10-60 [facility] Serum or plasma hepatitis C virus antibody signal/cutoff ratio by immunoassay (relatiOrdered By: Jun Padron on 10-07-2021 HCV Ab Signal/Cutoff IA [Rel units/Vol] <0.1 s/co ratio 0.0-0.9 [facility] A1C with Estimated Average Heber boyer 09-10-2021 Glucose [Mass/Vol] 108 mg/dL Normal [facility] Comment on above: Order Comment: PT FA STED 12 HRS Result Comment: PERF ORMED BY: [place] [address] PATHOLOGIST TOUR PRODUCTION SUPERVISOR JUJU AMAYA M.D. Performed By: #### E BS CMP, TSH3, CBCNO, LIPID #### [facility] [address] [place] [address] HbA1c (Bld) [Mass fraction] 5.4 % Normal 4.3-5.6 [facility] Comment on above: Order Comment: PT FA STED 12 HRS Result Comment: Incr eased risk for diabetes: 5.7 - 6.4 diabetes: >6.4 glycemic control for adults with diabetes: <7.0 Performed By: #### E BS CMP, TSH3, CBCNO, LIPID #### [facility] [address] Basophils Auto (Bld) [#/Vol] Ordered By: Daniel Pink on 09-10-2021 Basophils (Bld) [#/Vol] 0.0 10*3/uL 0.0-0.2 [facility] Basophils/100 WBC Auto (Bld) Ordered By: Daniel Pink on 09-10-2021 Basophils/100 WBC (Bld) 0.7 % . F [facility] Blood hemoglobin measurement (mass/volume)Ordered By: Daniel Pink on 09-10-2021 Hemoglobin (Bld) [Mass/Vol] 13.9 g/dL 11.8-15.4 [facility] Blood leukocytes automated c ount (number/volume)Ordered By: Daniel Pink on 09-10-2021 WBC (Bld) [#/Vol] 6.0 10*3/uL 4.5-11.0 [facility] Body fluid albumin measureme nt (mass/volume)Ordered By: Daniel Pink on 09-10-2021 Albumin (Body fld) [Mass/Vol] 3.8 g/dL 3.2-5.5 [facility] Complete Blood Count Auto Di ffon 09-10-2021 Basophils (Bld) [#/Vol] 0.0 10*3/uL Normal 0.0-0.2 [facility] Comment on above: Order Comment: PT FA STED 12 HRS Result Comment: PERF ORMED BY: [place] [address] PATHOLOGIST TOUR PRODUCTION SUPERVISOR JUJU AMAYA M.D. Performed By: #### E BS CMP, TSH3, CBCNO, LIPID #### [facility] [address] Basophils/100 WBC (Bld) 0.7 % Normal . F [facility] Comment on above: Order Comment: PT FA STED 12 HRS Performed By: #### E BS CMP, TSH3, CBCNO, LIPID #### [facility] [address] Eosinophils (Bld) [#/Vol] 0.1 10*3/uL Normal 0.0-0.45 [facility] Comment on above: Order Comment: PT FA STED 12 HRS Performed By: #### E BS CMP, TSH3, CBCNO, LIPID #### [facility] [address] [place] [address] [place] Eosinophils/100 WBC (Bld) 1.0 % Normal . [facility] Comment on above: Order Comment: PT FA STED 12 HRS Performed By: #### E BS CMP, TSH3, CBCNO, LIPID #### [facility] [address] Erythrocyte distribution width (RBC) [Ratio] 13.9 % Normal 11.9-15.3 [facility] Comment on above: Order Comment: PT FA STED 12 HRS Performed By: #### E BS CMP, TSH3, CBCNO, LIPID #### [address] Hematocrit (Bld) [Volume fraction] 40.7 % Normal 34.0-46.4 [facility] Comment on above: Order Comment: PT FA STED 12 HRS Performed By: #### E BS CMP, TSH3, CBCNO, LIPID #### [address] Hemoglobin (Bld) [Mass/Vol] 13.9 g/dL Normal 11.8-15.4 [facility] Comment on above: Order Comment: PT FA STED 12 HRS Performed By: #### E BS CMP, TSH3, CBCNO, LIPID #### [address] Lymphocytes (Bld) [#/Vol] 1.6 10*3/uL Normal 1.00-4.8 [facility] Comment on above: Order Comment: PT FA STED 12 HRS Performed By: #### E BS CMP, TSH3, CBCNO, LIPID #### [place] [address] [place] Lymphocytes/100 WBC (Bld) 26.5 % Normal . [facility] [facility] Comment on above: Order Comment: PT FA STED 12 HRS Performed By: #### E BS CMP, TSH3, CBCNO, LIPID #### [address] MCH (RBC) [Entitic mass] 28.5 pg Normal 24.7-34.3 [facility] Comment on above: Order Comment: PT FA STED 12 HRS Performed By: #### E BS CMP, TSH3, CBCNO, LIPID #### [facility] [address] MCV (RBC) [Entitic vol] 83.6 fL Normal 80-[address] [facility] Comment on above: Order Comment: PT FA STED 12 HRS Performed By: #### E BS CMP, TSH3, CBCNO, LIPID #### [facility] [address] Mean Corpuscular HGB Conc 34.1 g/dL Normal 32.0-35.0 [facility] Comment on above: Order Comment: PT FA STED 12 HRS Performed By: #### E BS CMP, TSH3, CBCNO, LIPID #### [facility] [address] [place] [address] [place] Monocytes (Bld) [#/Vol] 0.4 10*3/uL Normal 0.0-0.8 [facility] Comment on above: Order Comment: PT FA STED 12 HRS Performed By: #### E BS CMP, TSH3, CBCNO, LIPID #### [facility] [address] [place] [address] [place] Monocytes/100 WBC (Bld) 6.2 % Normal . F [facility] Comment on above: Order Comment: PT FA STED 12 HRS Performed By: #### E BS CMP, TSH3, CBCNO, LIPID #### [facility] [address] [place] [address] [place] Neutrophils (Bld) [#/Vol] 3.9 10*3/uL Normal 1.8-7.7 [facility] Comment on above: Order Comment: PT FA STED 12 HRS Performed By: #### E BS CMP, TSH3, CBCNO, LIPID #### [facility] [address] [place] [address] [place] Neutrophils/100 WBC (Bld) 65.6 % Normal . [facility] Comment on above: Order Comment: PT FA STED 12 HRS Performed By: #### E BS CMP, TSH3, CBCNO, LIPID #### [facility] [address] Nucleated RBC/100 WBC (Bld) [Ratio] 0.1 % Normal 0-0.5 [facility] Comment on above: Order Comment: PT FA STED 12 HRS Performed By: #### E BS CMP, TSH3, CBCNO, LIPID #### [facility] [address] Platelet mean volume (Bld) [Entitic vol] 9.5 fL Normal 6.3-10.7 [facility] Comment on above: Order Comment: PT FA STED 12 HRS Performed By: #### E BS CMP, TSH3, CBCNO, LIPID #### [address] Platelets (Bld) [#/Vol] 265 10*3/uL Normal 150-450 [facility] Comment on above: Order Comment: PT FA STED 12 HRS Performed By: #### E BS CMP, TSH3, CBCNO, LIPID #### [address] RBC (Bld) [#/Vol] 4.88 10*6/uL Normal 3.60-5.00 [facility] Comment on above: Order Comment: PT FA STED 12 HRS Performed By: #### E BS CMP, TSH3, CBCNO, LIPID #### [facility] [address] [place] [address] WBC (Bld) [#/Vol] 6.0 10*3/uL Normal 4.5-11.0 [facility] Comment on above: Order Comment: PT FA STED 12 HRS Performed By: #### E BS CMP, TSH3, CBCNO, LIPID #### [facility] [address] [place] [address] Comprehensive Metabolic Pane momo 09-10-2021 Albumin [Mass/Vol] 3.8 g/dL Normal 3.2-5.5 [facility] Comment on above: Order Comment: PT FA STED 12 HRS Performed By: #### E BS CMP, TSH3, CBCNO, LIPID #### [facility] [address] [place] [address] [place] Albumin/Globulin [Mass ratio] 1.5 {ratio} Normal [facility] Comment on above: Order Comment: PT FA STED 12 HRS Performed By: #### E BS CMP, TSH3, CBCNO, LIPID #### [facility] [address] [place] [address] [place] ALP [Catalytic activity/Vol] 32 U/L Normal 32-92 [facility] Comment on above: Order Comment: PT FA STED 12 HRS Result Comment: PERF ORMED BY: [place] [address] PATHOLOGIST TOUR PRODUCTION SUPERVISOR JUJU AMAYA M.D. Performed By: #### E BS CMP, TSH3, CBCNO, LIPID #### [facility] [address] [place] [address] [place] ALT [Catalytic activity/Vol] 14 U/L Normal 10-60 [facility] Comment on above: Order Comment: PT FA STED 12 HRS Performed By: #### E BS CMP, TSH3, CBCNO, LIPID #### [facility] [address] [place] [id number] [place] AST [Catalytic activity/Vol] 15 U/L Normal 10-42 [facility] Comment on above: Order Comment: PT FA STED 12 HRS Performed By: #### E BS CMP, TSH3, CBCNO, LIPID #### [facility] [address] [place] [address] [place] Bilirubin [Mass/Vol] 0.6 mg/dL Normal 0.3-1.2 [facility] Comment on above: Order Comment: PT FA STED 12 HRS Performed By: #### E BS CMP, TSH3, CBCNO, LIPID #### [facility] [address] [place] [address] [place] Calcium [Mass/Vol] 9.4 mg/dL Normal 8.2-10.2 [facility] Comment on above: Order Comment: PT FA STED 12 HRS Performed By: #### E BS CMP, TSH3, CBCNO, LIPID #### [facility] [address] Chloride [Moles/Vol] 101 mmol/L Normal 95-114 [facility] Comment on above: Order Comment: PT FA STED 12 HRS Performed By: #### E BS CMP, TSH3, CBCNO, LIPID #### [facility] [address] CO2 [Moles/Vol] 25.3 mmol/L Normal 22.0-30.0 [facility] Comment on above: Order Comment: PT FA STED 12 HRS Performed By: #### E BS CMP, TSH3, CBCNO, LIPID #### [facility] [address] [place] [address] Creatinine [Mass/Vol] 0.76 mg/dL Normal 0.44-1.03 [facility] Comment on above: Order Comment: PT FA STED 12 HRS Performed By: #### E BS CMP, TSH3, CBCNO, LIPID #### [address] Estimated GFR ( Luh > 60 [facility] Comment on above: Order Comment: PT FA STED 12 HRS Result Comment: GFR estimated reference range: According to KDOQI guidelines, <60 ml/min/1.73m2 is sufficient to diagnose a patient with chronic kidney disease. Performed By: #### E BS CMP, TSH3, CBCNO, LIPID #### [facility] [address] [place] [address] Estimated GFR (Non- Am > 60 [facility] Comment on above: Order Comment: PT FA STED 12 HRS Performed By: #### E BS CMP, TSH3, CBCNO, LIPID #### [facility] [address] Globulin (S) [Mass/Vol] 2.6 g/dL Normal [facility] Comment on above: Order Comment: PT FA STED 12 HRS Performed By: #### E BS CMP, TSH3, CBCNO, LIPID #### [facility] [address] Glucose [Mass/Vol] 86 mg/dL Normal 70-100 [facility] Comment on above: Order Comment: PT FA STED 12 HRS Result Comment: [place] Glucose Reference Range is dependent on time and content of last meal. Glucose of more than 200 mg/dL in a nonstressed, ambulatory subject supports the diagnosis of Diabetes Mellitus. ADA recommended reference range Performed By: #### E BS CMP, TSH3, CBCNO, LIPID #### [facility] [address] [place] [address] [place] Potassium [Moles/Vol] 4.0 mmol/L Normal 3.5-5.1 [facility] Comment on above: Order Comment: PT FA STED 12 HRS Performed By: #### E BS CMP, TSH3, CBCNO, LIPID #### [facility] [address] Protein [Mass/Vol] 6.4 g/dL Normal 6.1-7.9 [facility] Comment on above: Order Comment: PT FA STED 12 HRS Performed By: #### E BS CMP, TSH3, CBCNO, LIPID #### [facility] [address] [place] [address] [place] Sodium [Moles/Vol] 138 mmol/L Normal 136-146 [facility] Comment on above: Order Comment: PT FA STED 12 HRS Performed By: #### E BS CMP, TSH3, CBCNO, LIPID #### [facility] [address] [place] [address] [place] Urea nitrogen [Mass/Vol] 13 mg/dL Normal 9-23 [facility] Comment on above: Order Comment: PT FA STED 12 HRS Performed By: #### E BS CMP, TSH3, CBCNO, LIPID #### [facility] [address] [place] [address] [place] Creatinine and Glomerular fi ltration rate.predicted panel (S/P/Bld)Ordered By: Daniel Pink on 09-10-2021 Creatinine [Mass/Vol] 0.76 mg/dL 0.44-1.03 [facility] Eosinophils Auto (Bld) [#/Vo l]Ordered By: Daniel Pink on 09-10-2021 Eosinophils (Bld) [#/Vol] 0.1 10*3/uL 0.0-0.45 [facility] Eosinophils/100 WBC Auto (Bl d)Ordered By: Daniel Pink on 09-10-2021 Eosinophils/100 WBC (Bld) 1.0 % . [facility] Erythrocyte distribution wid th Auto (RBC) [Ratio]Ordered By: Daniel Pink on 09-10-2021 Erythrocyte distribution width (RBC) [Ratio] 13.9 % 11.9-15.3 [facility] Estimated glomerular filtrat ion rate (GFR) non- AmericanOrdered By: Daniel Pink on 09-10-2021 GFR/1.73 sq M.predicted among non-blacks MDRD (S/P/Bld) [Vol rate/Area] > 60 mL/Min [facility] Free thyroxine indexOrdered By: Daniel Pink on 09-10-2021 Free T4 index Calc [Mass/Vol] 2.1 1.2-4.9 [facility] Globulin Calc (S) [Mass/Vol] Ordered By: Daniel Pink on 09-10-2021 Globulin (S) [Mass/Vol] 2.6 g/dL F [facility] Glucose mean value [Mass/vol ume] in Blood Estimated from glycated hemoglobinOrdered By: Daniel Pink on 09-10-2021 Average glucose Estimated from glycated hemoglobin (Bld) [Mass/Vol] 108 mg/dL [facility] Hematocrit Auto (Bld) [Volum e fraction]Ordered By: Daniel Pink on 09-10-2021 Hematocrit (Bld) [Volume fraction] 40.7 % 34.0-46.4 [facility] Hemoglobin A1c percentageOrd ered By: Daniel Pink on 09-10-2021 HbA1c (Bld) [Mass fraction] 5.4 % 4.3-5.6 [facility] Comment on above: Increased risk for d iabetes: 5.7 - 6.4 diabetes: >6.4 glycemic control for adults with diabetes: <7.0 Laboratory - Hematology and Cell countsOrdered By: Daniel Pink on 09-10-2021 Nucleated RBC/100 WBC (Bld) [Ratio] 0.1 % 0-0.5 [facility] Lymphocytes Auto (Bld) [#/Vo l]Ordered By: Daniel Pink on 09-10-2021 Lymphocytes (Bld) [#/Vol] 1.6 10*3/uL 1.00-4.8 [facility] Lymphocytes/100 WBC Auto (Bl d)Ordered By: Daniel Pink on 09-10-2021 Lymphocytes/100 WBC (Bld) 26.5 % . [facility] MCH Auto (RBC) [Entitic mass ]Ordered By: Daniel Pink on 09-10-2021 MCH (RBC) [Entitic mass] 28.5 pg 24.7-34.3 [facility] MCHC Auto (RBC) [Mass/Vol]Or dered By: Daniel Pink on 09-10-2021 MCHC (RBC) [Mass/Vol] 34.1 g/dL 32.0-35.0 [facility] MCV Auto (RBC) [Entitic vol] Ordered By: Daniel Pink on 09-10-2021 MCV (RBC) [Entitic vol] 83.6 fL 80-[address] [facility] Monocytes Auto (Bld) [#/Vol] Ordered By: Daniel Pink on 09-10-2021 Monocytes (Bld) [#/Vol] 0.4 10*3/uL 0.0-0.8 [facility] Monocytes/100 WBC Auto (Bld) Ordered By: Daniel Pink on 09-10-2021 Monocytes/100 WBC (Bld) 6.2 % . F [facility] Neutrophils Auto (Bld) [#/Vo l]Ordered By: Daniel Pink on 09-10-2021 Neutrophils (Bld) [#/Vol] 3.9 10*3/uL 1.8-7.7 [facility] Neutrophils/100 WBC Auto (Bl d)Ordered By: Daniel Pink on 09-10-2021 Neutrophils/100 WBC (Bld) 65.6 % . [facility] No Panel InformationOrdered By: Daniel Pink on 09-10-2021 Estimated GFR () > 60 mL/Min [facility] Comment on above: GFR estimated refere nce range: According to KDOQI guidelines, <60 ml/min/1.73m2 is sufficient to diagnose a patient with chronic kidney disease. Free Thyroxine (T4) Direct 7.1 ug/dL 4.5-12.0 [facility] Creatinine Clearance (Chem N/A [facility] Platelet mean volume Auto (B ld) [Entitic vol]Ordered By: Daniel Pink on 09-10-2021 Platelet mean volume (Bld) [Entitic vol] 9.5 fL 6.3-10.7 [facility] Platelets Auto (Bld) [#/Vol] Ordered By: Daniel Pink on 09-10-2021 Platelets (Bld) [#/Vol] 265 10*3/uL 150-450 [facility] Protein [Mass/volume] in Ser um or PlasmaOrdered By: Daniel Pink on 09-10-2021 Protein [Mass/Vol] 6.4 g/dL 6.1-7.9 [facility] RBC Auto (Bld) [#/Vol]Ordere d By: Daniel Pink on 09-10-2021 RBC (Bld) [#/Vol] 4.88 10*6/uL 3.60-5.00 [facility] Serum or plasma alanine marks otransferase measurement without P-5'-P (enzymatic activiOrdered By: Daniel Pink on 09-10-2021 ALT No additional P-5'-P [Catalytic activity/Vol] 14 U/L 10-60 [facility] Serum or plasma albumin/glob ulin mass ratioOrdered By: Daniel Pink on 09-10-2021 Albumin/Globulin [Mass ratio] 1.5 {ratio} [facility] Serum or plasma alkaline alberto sphatase measurement (enzymatic activity/volume)Ordered By: Daniel Pink on 09-10-2021 ALP [Catalytic activity/Vol] 32 U/L 32-92 [facility] Serum or plasma aspartate am inotransferase measurement (enzymatic activity/volume)Ordered By: Daniel Pink on 09-10-2021 AST [Catalytic activity/Vol] 15 U/L 10-42 [facility] Serum or plasma calcium [place] urement (mass/volume)Ordered By: Daniel Pink on 09-10-2021 Calcium [Mass/Vol] 9.4 mg/dL 8.2-10.2 [facility] Serum or plasma chloride marcie surement (moles/volume)Ordered By: Daniel Pink on 09-10-2021 Chloride [Moles/Vol] 101 mmol/L 95-114 [facility] Serum or plasma glucose [place] urement (mass/volume)Ordered By: Daniel Pink on 09-10-2021 Glucose [Mass/Vol] 86 mg/dL 70-100 [facility] Comment on above: ADA recommended refe rence range Random Glucose Reference Range is dependent on time and content of last meal. Glucose of more than 200 mg/dL in a nonstressed, ambulatory subject supports the diagnosis of Diabetes Mellitus. Serum or plasma potassium me asurement (moles/volume)Ordered By: Daniel Pink on 09-10-2021 Potassium [Moles/Vol] 4.0 mmol/L 3.5-5.1 [facility] Serum or plasma sodium measu rement (moles/volume)Ordered By: Daniel Pink on 09-10-2021 Sodium [Moles/Vol] 138 mmol/L 136-146 [facility] Serum or plasma total biliru bin measurement (mass/volume)Ordered By: Daniel Pink on 09-10-2021 Bilirubin [Mass/Vol] 0.6 mg/dL 0.3-1.2 [facility] Serum or plasma total carbon dioxide measurement (moles/volume)Ordered By: Daniel Pink on 09-10-2021 CO2 [Moles/Vol] 25.3 mmol/L 22.0-30.0 [facility] Serum or plasma urea nitroge n measurement (mass/volume)Ordered By: Daniel Pink on 09-10-2021 Urea nitrogen [Mass/Vol] 13 mg/dL 9-23 [facility] TSH DL <= 0.005 mIU/L QnOrde red By: Daniel Pink on 09-10-2021 TSH Qn 2.050 m[IU]/L 0.450-4.500 [facility] Thyroid Profile IIon 022 Free Thyroxine Index 2.1 Normal 1.2-4.9 [facility] Comment on above: Order Comment: PT FA STED 12 HRS Performed By: #### E BS CMP, TSH3, CBCNO, LIPID #### [facility] [address] [place] [address] T4 [Mass/Vol] 7.1 ug/dL Normal 4.5-12.0 [facility] Comment on above: Order Comment: PT FA STED 12 HRS Performed By: #### E BS CMP, TSH3, CBCNO, LIPID #### [facility] [address] [place] [address] Triiodothryronine (T3) Uptake 30 % Normal 24-39 [facility] Comment on above: Order Comment: PT FA STED 12 HRS Performed By: #### E BS CMP, TSH3, CBCNO, LIPID #### [address] Triiodothyronine,(T3) ([facility] 111 ng/dL Normal 71-180 [facility] Comment on above: Order Comment: PT FA STED 12 HRS Result Comment: Perf ormed at: CB - [facility] [place] [id number] Utility Forester: Aurelio Vivar PhD, Phone: [phone] Performed By: #### E BS CMP, TSH3, CBCNO, LIPID #### [address] TSH Qn 2.050 m[IU]/L Normal 0.450-4.500 [facility] Comment on above: Order Comment: PT FA STED 12 HRS Result Comment: PERF ORMED BY: [place] [address] PATHOLOGIST TOUR PRODUCTION SUPERVISOR JUJU AMAYA M.D. Performed By: #### E BS CMP, TSH3, CBCNO, LIPID #### [address] Triiodothyronine (T3) [Mass/ volume] in Serum or PlasmaOrdered By: Daniel Pink on 09-10-2021 T3 [Mass/Vol] 111 ng/dL 71-180 [facility] Comment on above: Performed at: [address], [place], [place] [id number] Utility Forester: Aurelio Vivar PhD, Phone: [phone] Triiodothyronine (T3) resin uptake testOrdered By: Daniel Pink on 09-10-2021 T3RU 30 % 24-39 [facility] COVID-19 Antigenon 2 COVID-19 Antigen Healthcare Worker?: Y Susu Reference Susu Reference Negative SARS-CoV+SARS-CoV-2 (COVID-19) Ag [Presence] in Respiratory specimen by Rapid immunoassay Negative for SARS Antigen by [employer] COVID19 Blank Space Susu Disclaimer Negative results, from patients with symptom Susu Disclaimer onset beyond five days, should be treated as Susu Disclaimer presumptive and confirmation with a molecular Susu Disclaimer assay, if necessary, for patient management, Susu Disclaimer may be performed. Negative results do not rule Susu Disclaimer out COVID-19 and should not be used as the sole Susu Disclaimer basis for treatment or patient management Susu Disclaimer decisions, including infection control decisions. Susu Disclaimer Negative results should be considered in the Susu Disclaimer context of a patient's recent exposures, history Susu Disclaimer and the presence of clinical signs and symptoms Susu Disclaimer consistent with COVID-19. COVID19 Blank Space Susu Disclaimer The Susu SARS Antigen LUCRETIA does not differentiate Susu Disclaimer between SARS-CoV and SARS-CoV-2. COVID19 Blank Space Susu Disclaimer This test was developed and its performance Susu Disclaimer characteristic determined by [employer] and Susu Disclaimer validated at [facility]. This Susu Disclaimer test has not been FDA cleared or approved. This Susu Disclaimer test has been authorized by FDA under an Emergency Use Susu Disclaimer Authorization (EUA). This test has been validated Susu Disclaimer in accordance with the FDA's Guidance Document (Policy Susu Disclaimer for Diagnostics Testing in Laboratories Certified to Susu Disclaimer Perform High Complexity Testing under CLIA prior to Susu Disclaimer Emergency Use Authorization for Coronavirus Susu Disclaimer iseas during the Public Health Emergency) Susu Disclaimer issued on July 07, 2019. This test is only authorized Susu Disclaimer for the duration of time the declaration that Susu Disclaimer circumstances exist justifying the authorization of Susu Disclaimer the emergency use of in vitro diagnostic tests for Susu Disclaimer detection of SARS-CoV-2 virus and/or diagnosis of Susu Disclaimer COVID-19 infection under section 564(b)(1) of the Susu Disclaimer Act, 21 U.S.C. 360bbb-3(b)(1), unless the Susu Disclaimer authorization is terminated or revoked sooner. PERFORMED BY: [facility] [address] [place] [address] PATHOLOGIST TOUR PRODUCTION SUPERVISOR JUJU AMAYA M.D. Normal [facility] Comment on above: Performed By: #### E BS CMP, TSH3, CBCNO, LIPID #### [facility] [address] [facility] SARS-CoV-2 (COVID-19) RNA NAPOLEON+probe Ql (Unsp spec) Negative Normal Negative [facility] Comment on above: Order Comment: Healt hcare Worker?: Y Result Comment: Testing for SARS-CoV-2 by RT-PCR This test was developed and its performance characteristics determined by [employer] and validated at the [facility]. This test has not been FDA cleared or approved. This test has been authorized by FDA under an Emergency Use Authorization (EUA). This test has been validated in accordance with the FDA's Guidance Document (Policy for Diagnostics Testing in Laboratories Certified to Perform High Complexity Testing under CLIA prior to Emergency Use Authorization for Coronavirus Disease-2019 during the Public Health Emergency) issued on July 07, 2019. This test is only authorized for the duration of time the declaration that circumstances exist justifying the authorization of the emergency use of in vitro diagnostic tests for detection of SARS-CoV-2 virus and/or diagnosis of COVID-19 infection under section 564(b)(1) of the Act, 21 U.S.C. 360bbb-3(b)(1), unless the authorization is terminated or revoked sooner. PERFORMED BY: [place] [id number] PATHOLOGIST TOUR PRODUCTION SUPERVISOR JUJU AMAYA M.D. Performed By: #### E BS CMP, TSH3, CBCNO, LIPID #### [address] Susu Ag Negativeon 04-08-19 22 Susu Ag Negative Negative Normal Negative [facility] Comment on above: Result Comment: This is a duplicate Susu SARS Antigen (LUCRETIA) result to be used for statistical tracking purpose only. PERFORMED BY: [place] [address] PATHOLOGIST TOUR PRODUCTION SUPERVISOR JUJU AMAYA M.D. Performed By: #### E BS CMP, TSH3, CBCNO, LIPID #### [place] [id number] [facility] COVID-19 [facility] 04-06-2021 SARS-CoV-2 (COVID-19) RNA NAPOLEON+probe Ql (Unsp spec) Negative Normal Negative [facility] Comment on above: Order Comment: Initi al specimen collected improperly. Testing repeated following discussion with nursing supervisor statement clerks. Healthcare Worker?: Y Result Comment: Testing for SARS-CoV-2 by RT-PCR This test was developed and its performance characteristics determined by [employer], [employer] (BD) and validated at the [facility]. This test has not been FDA cleared or approved. This test has been authorized by FDA under an Emergency Use Authorization (EUA). This test has been validated in accordance with the FDA's Guidance Document (Policy for Diagnostics Testing in Laboratories Certified to Perform High Complexity Testing under CLIA prior to Emergency Use Authorization for Coronavirus Disease-2019 during the Public Health Emergency) issued on July 07, 2019. This test is only authorized for the duration of time the declaration that circumstances exist justifying the authorization of the emergency use of in vitro diagnostic tests for detection of SARS-CoV-2 virus and/or diagnosis of COVID-19 infection under section 564(b)(1) of the Act, 21 U.S.C. 360bbb-3(b)(1), unless the authorization is terminated or revoked sooner. PERFORMED BY: [place] [address] PATHOLOGIST TOUR PRODUCTION SUPERVISOR JUJU AMAYA M.D. Performed By: #### E BS CMP, TSH3, CBCNO, LIPID #### [address] SARS-CoV-2 (COVID-19) RNA NAPOLEON+probe Ql (Unsp spec) Negative Normal Negative [facility] Comment on above: Order Comment: Healt hcare Worker?: Y Result Comment: Testing for SARS-CoV-2 by RT-PCR This test was developed and its performance characteristics determined by [employer], [employer] ([place]) and validated at the [facility]. This test has not been FDA cleared or approved. This test has been authorized by FDA under an Emergency Use Authorization (EUA). This test has been validated in accordance with the FDA's Guidance Document (Policy for Diagnostics Testing in Laboratories Certified to Perform High Complexity Testing under CLIA prior to Emergency Use Authorization for Coronavirus Disease-2019 during the Public Health Emergency) issued on July 07, 2019. This test is only authorized for the duration of time the declaration that circumstances exist justifying the authorization of the emergency use of in vitro diagnostic tests for detection of SARS-CoV-2 virus and/or diagnosis of COVID-19 infection under section 564(b)(1) of the Act, 21 U.S.C. 360bbb-3(b)(1), unless the authorization is terminated or revoked sooner. PERFORMED BY: [facility] [address] [place] [address] PATHOLOGIST TOUR PRODUCTION SUPERVISOR JUJU AMAYA M.D. Performed By: #### C OVID 19 [facility] #### [facility] [address] [id number] [facility] COVID Quick Testingon 2020 Result Negative [facility] Other Quick Fluon 04-01-2021 FLUAV Ab CF (S) [Titer] Negative [facility] Other FLUBV Ab CF (S) [Titer] Negative [facility] Other Vital Signs Date Time Vital Sign Value Performing Clinician Facility 06-09-2024 08:52-0500 Body mass index (BMI) [Ratio] 31.83 kg/m2 Rik Gonzáles DO Work Phone: [facility] 06-09-2024 08:52-0500 Body weight 78.93 kg [employer] DO Work Phone: [facility] 06-09-2024 08:52-0500 Diastolic blood pressure 70 mm[Hg] Rik Eliecer DO Work Phone: [facility] 06-09-2024 08:52-0500 Systolic blood pressure 110 mm[Hg] RikSPI Laserso DO Work Phone: [facility] 04-03-2022 03:06-0500 Body weight 72.[address] RIK GONZÁLES . [facility] Comment on above: Performed By: #### HCVPCRR #### [facility] [address] [place] [address] Dr. Magnus Kraus 01-14-2022 11:30-0400 Body height 158.75 cm Sera Espino Other [facility] Other 01-14-2022 11:30-0400 Body mass index (BMI) [Ratio] 28.61 kg/m2 Sera Espino Other [facility] Other 01-14-2022 11:30-0400 Body temperature 98.2 [degF] Sera Espino Other [facility] Other 01-14-2022 11:30-0400 Body weight 72.12 kg Sera Espino Other [facility] Other 01-14-2022 11:30-0400 Diastolic blood pressure 71 mm[Hg] Sera Espino Other [facility] Other 01-14-2022 11:30-0400 Respiratory rate 19 /min Sera Espino Other [facility] Other 01-14-2022 11:30-0400 Systolic blood pressure 109 mm[Hg] Sera Espino Other [facility] Other 04-01-2021 14:30-0500 Body height 160.02 cm Franchesca Ginty Other [facility] Other 04-01-2021 14:30-0500 Body mass index (BMI) [Ratio] 29.05 kg/m2 Franchesca Ginty Other [facility] Other 04-01-2021 14:30-0500 Body temperature 98.2 [degF] Franchesca Ginty Other [facility] Other 04-01-2021 14:30-0500 Body weight 74.39 kg Franchesca Ginty Other [facility] Other 04-01-2021 14:30-0500 SaO2% (BldA) [Mass fraction] 99 % Franchesca Adam Other [facility] Other Encounters Encounter Date Encounter Type Care Provider Facility Start: 06-09-2024 End: 06-09-2024 Bamboo flowsheet Rik Eliecer DO Work Phone: [facility] Start: 06-09-2024 End: 06-09-2024 Bamboo flowsheet Rik Eliecer DO Work Phone: [facility] Start: 06-09-2024 End: 06-09-2024 Patient encounter procedure Rik Eliecer DO Work Phone: [facility] Start: 06-09-2024 End: 06-09-2024 Periodic preventive med est patient 18-39 yrs Rik Eliecer DO Work Phone: [facility] Comment on above: Well woman exam with routine gynecological exam; Skin irritation Start: 08-20-2022 Evaluation and management of inpatient DR NONE LISTED REQUEST Facility: Start: 08-16-2022 End: 08-16-[address] NONE LISTED REQUEST Facility:[facility] Start: 08-13-2022 End: 08-13-[address] NONE LISTED REQUEST Facility:[facility] Start: 08-09-2022 End: 08-09-[address] NONE LISTED REQUEST Facility: Start: 08-06-2022 End: 08-06-[address] CHELSEY CARDENAS . Facility:[facility] Start: 08-02-2022 End: 08-02-[address] RIK GONZÁLES . Facility:[facility] Start: 07-30-2022 End: 07-30-[address] CHELSEY CARDENAS . Facility:[facility] Start: 07-26-2022 End: 07-26-[address] CHELSEY CARDENAS . Facility:[facility] Start: 07-23-2022 End: 07-23-2022 ambulatory LUIS LILLY . Facility:[facility] Start: 07-19-2022 End: 07-19-[address] RIK GONZÁLES . Facility:[facility] Start: 07-16-2022 End: 07-16-[address] CHELSEY CARDENAS . Facility:[facility] Start: 07-12-2022 End: 07-12-2022 ambulatory SUDHIR GEORGE Facility:[facility] Start: 07-09-2022 End: 07-09-2022 ambulatory LUIS LILLY . Facility:[facility] Start: 07-05-2022 End: 07-05-[address] CHELSEY CARDENAS . Facility:[facility] Start: 07-02-2022 End: 07-02-[address] RIK GONZÁLES . Facility:[facility] Start: 05-22-2022 End: 05-23-2022 ambulatory JESSI BASS [facility] Start: 05-22-2022 End: 05-22-2022 Subsequent hospital visit by physician KAL Dowd Start: 05-13-2022 End: 05-14-2022 ambulatory NONE LISTED REQUEST Facility:[facility] Start: 04-15-2022 End: 04-16-[address] NONE LISTED REQUEST Facility:[facility] Start: 04-10-2022 End: 04-10-2022 ambulatory MD Daniel Pink Work Phone: [facility] Work Phone: Start: 04-10-2022 End: 04-10-2022 Departed Referred MD Daniel Pink Work Phone: [facility] [address] Work Phone: Start: 03-31-2022 End: 04-01-[address] RIK GONZÁLES . Facility:[facility] Start: 02-10-2022 End: 02-10-[address] JUAN ROCHA Facility:[facility] Start: 02-08-2022 End: 02-09-[address] RIK GONZÁLES . Facility:[facility] Start: 01-30-2022 ([facility] f/u) [facility] F/U Sera Espino [facility] Start: 01-30-2022 End: 01-30-2022 ambulatory Sera Espino Other [employer] [facility] Other Start: 01-14-2022 ([facility] Hl) [facility] Visit Sera Espino [facility] Start: 01-14-2022 Encounter for genera l adult medical examination without abnormal findings Sera Espino [facility] Start: 01-14-2022 End: 01-14-2022 ambulatory MD Daniel Pink Work Phone: [facility] Other Start: 01-14-2022 End: 01-14-2022 Departed Referred MD Daniel Pink Work Phone: [facility] Start: 01-13-2022 End: 01-14-[address] RIK GONZÁLES . Facility:[facility] Start: 01-06-2022 End: 01-06-2022 ambulatory Daniel Pink Facility:[facility] Start: 01-06-2022 End: 01-06-2022 Departed Referred MD Daniel Pink Work Phone: [facility] [address] Start: 12-31-2021 End: 01-01-[address] RIK GONZÁLES . Facility:[facility] Start: 11-18-2021 End: 11-18-2021 ambulatory Daniel Pink Facility:[facility] Start: 11-18-2021 End: 11-18-2021 Departed Referred MD Daniel Pink Work Phone: [facility] [address] Start: 10-07-2021 End: 10-07-2021 ambulatory Daniel Pink Facility:[facility] Start: 10-07-2021 End: 10-07-2021 Patient encounter procedure MD Daniel Pink Work Phone: [facility] [address] Start: 09-10-2021 End: 09-10-2021 ambulatory Daniel Pink Facility:[facility] Start: 09-10-2021 End: 09-10-2021 Patient encounter procedure MD Daniel Pink Work Phone: [facility] [place] Start: 09-08-2021 End: 09-08-2021 ambulatory WERNER ANAYA . Facility:[facility] Start: 04-08-2021 End: 04-08-2021 ambulatory Jun Padron Facility:[facility] Start: 04-06-2021 End: 04-06-2021 ambulatory Jun Padron Facility:[facility] Start: 04-06-2021 End: 04-06-2021 ambulatory Jun Padron Facility:[facility] Start: 04-01-2021 End: 04-01-2021 ambulatory Franchesca Adam Other [facility] Other Start: 04-01-2021 Office outpatient vi sit 15 minutes Franchesca Adam [facility] Plan of Treatment Date Care Activity Detail Author Start: 06-15-2025 End: 06-15-2025 Patient encounter procedure 06/15/2025 8:30 AM EDT Office Visit [facility] [address] [place] [id number] Rik Gonzáles, [address] [place] [address] [facility] Start: 12-06-2023 Influenza vaccination Influenza Vacc ine (#1) [facility] Start: 04-10-2022 [facility] Start: 2021 Screening for malignant neoplasm of cervix [facility] Start: 04-22-2021 COVID-19 Vaccine (3 - Booster for Pfizer series) COVID-19 Vaccine (3 - Booster for Pfizer series) [facility] Start: 06-24-2019 DTaP/Tdap/Td vaccine (1 - Tdap) DTaP/Tdap/Td vaccine (1 - Tdap) [facility] Start: 2018 Hepatitis C screening Hepatitis C sc reen [facility] Start: 2016 Screening for Chlamydia trachomatis Chlamydia/GC screen [facility] Start: 06-24-2015 HIV screening HIV screen [facility] [employer] Start: 2012 Depression Screen Depression Screen [facility] Start: 06-24-2011 HPV vaccine (1 - 2-dose series) HPV vaccine (1 - 2-dose series) [facility] Start: 2001 Varicella vaccine (1 of 2 - 2-dose childhood series) Varicella vaccine (1 of 2 - 2-dose childhood series) [facility] Cytology Cervical or vaginal smear or scraping study Pap Smear Pathology and Cytology Routine Well woman exam with routine gynecological exam Ordered: 06/09/2024 [facility] Work Phone: Comment on above: Ordered: 06/09/2024 Hepatitis B virus surface Ab [Presence] in Serum [facility] Work Phone: Hepatitis B virus surface Ab [Presence] in Serum [facility] Hepatitis B virus surface Ag [Presence] in Serum or Plasma by Immunoassay [facility] Work Phone: Hepatitis B virus surface Ag [Presence] in Serum or Plasma by Immunoassay [facility] Hepatitis C virus Ab Signal/Cutoff in Serum or Plasma by Immunoassay [facility] Work Phone: Hepatitis C virus Ab Signal/Cutoff in Serum or Plasma by Immunoassay [facility] HIV 1+2 Ab+HIV1 p24 Ag [Presence] in Serum or Plasma by Immunoassay [facility] Work Phone: HIV 1+2 Ab+HIV1 p24 Ag [Presence] in Serum or Plasma by Immunoassay [facility] Immunizations Immunization Date Immunization Notes Care Provider Yesi can 01-08-2024 influenza virus vacc ine, unspecified formulation Rik Gonzáles DO Work Phone: [facility] Healthcare Payers Date Payer Category Payer Private Health Insurance [employer] [id number] 2022 Blue Cross Blue Shield BCBS [id number] 2021 Worker's Compensation [id number] 2021 Self-pay [id number] 2000 Unknown [id number] 2.16840.1.045373.3.579.2 .175 2000 Unknown [id number] 2.16840.1.880772.3.579.2 .593 2000 Unknown [id number] 2.16840.1.209335.3.579.2 .593 2000 Unknown [id number] 2.16.840.1.355965.3.579.2 .593 2000 Unknown [id number] 2.16.840.1.545512.3.579.2 .593 2000 Unknown [id number] 2.16.840.1.574412.3.579.2 .593 2000 Unknown [id number] 2.16840.1.703434.3.579.2 .593 2000 Unknown [id number] 2.16.840.1.561912.3.579.2 .593 2000 Unknown [id number] 2.16.840.1.258361.3.579.2 .593 2000 Unknown [id number] 2.16.840.1.348230.3.579.2 .593 2000 Unknown [id number] 2.16.840.1.526239.3.579.2 .593 2000 Unknown [id number] 2.16.840.1.824344.3.579.2 .593 2000 Unknown [id number] 2.16.840.1.952866.3.579.2 .593 2000 Unknown [id number] 2.16.840.1.574412.3.579.2 .593 2000 Unknown [id number] 2.16.840.1.967790.3.579.2 .593 2000 Unknown [id number] 2.16.840.1.850243.3.579.2 .593 2000 Unknown [id number] 2.16.840.1.136053.3.579.2 .593 2000 Unknown [id number] 2.16.840.1.917440.3.579.2 .593 2000 Unknown [id number] 2.16.840.1.573678.3.579.2 .593 2000 Unknown [id number] 2.16.840.1.370505.3.579.2 .593 2000 Unknown [id number] 2.16.840.1.540592.3.579.2 .593 2000 Unknown [id number] 2.16.840.1.569061.3.579.2 .593 2000 Unknown [id number] 2.16.840.1.149889.3.579.2 .593 2000 Unknown [id number] 2.16.840.1.576484.3.579.2 .593 2000 Unknown [id number] 2.16.840.1.042118.3.579.2 .593 1959 [facility] [id number] 2.16.840.1.776067.19 1959 Unknown [id number] 1959 Unknown [id number] 1.2.840.422805.1.13.239.2 .7.3.044056.315 Unknown [id number] 2.16.840.1.917754.3.579.2 .531 Unknown [id number] 2.16.840.1.200026.3.579.2 .531 Unknown [id number] 2.16.840.1.126266.3.579.2 .531 Unknown [id number] 2.16.840.1.437836.3.579.2 .531 Unknown [id number] 2.16.840.1.104268.3.579.2 .531 Unknown [id number] 2.16.840.1.649887.3.579.2 .531 Unknown [id number] 2.16.840.1.806656.3.579.2 .531 Unknown [id number] 2.16.840.1.517913.3.579.2 .531 Unknown [id number] 2.16.840.1.341604.3.579.2 .593 Social History Date Type Detail Facility Unknown if ever smoked [facility] Other Start: 01-16-2023 End: 06-09-2024 Sex Assigned At [employer] Other Start: 2000 Sex Assigned At Female [facility] Start: 05-22-2022 End: 01-16-2023 Tobacco smoking status COIS Never smoked tobacco [facility] Phone: Start: 05-22-2022 End: 01-16-2023 Tobacco use and exposure Smokeless tobacco non-user [facility] Phone: Start: 05-22-2022 End: 06-09-2024 Alcohol intake Lifetime non-drinker (finding) JANETTE [facility] [facility] Phone: Start: 12-04-2021 JANETTE Johnson [facility] Phone: Start: 2000 Sex Assigned At Not on file B ON [facility] Phone: Start: 01-16-2023 End: 06-09-2024 History of Social function [facility] Start: 09-30-2022 Alcohol Comment Caffeine intak e: 3-4 cups per day [facility] History of Present illness Narrative 06-09-2024 Karen Decker LPN - 06/09/2024 8:30 AM EST Note Date & Type Note Facility 06-09-2024 History of Presen t illness Narrative Reason for Appointment: Patient ID: Livier Barnes is a 23 y.o. female who presents for Well Women Visit Patient presents today for Annual Exam. 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 Pilonidal cyst with abscess 01/16/2023 Resolved Ambulatory Problems Diagnosis Date Noted No Resolved Ambulatory Problems Past Medical History: Diagnosis Date Allergies Asthma (CMS/HCC) HISTORY PAST MEDICAL HISTORY SOCIAL HISTORY Past Medical History: Diagnosis Date Allergies Asthma (CMS/HCC) Social History Tobacco Use Smoking status: Never Smokeless tobacco: Never Substance Use Topics Alcohol use: Never Comment: Caffeine intake: 3-4 cups per day Drug use: Never FAMILY HISTORY Family History Problem Relation Name Age of Onset Cancer Father Eddie Naidu head, neck Diabetes Mother's Brother Sterling SURGICAL HISTORY History reviewed. No pertinent surgical history. REVIEW OF SYSTEMS Review of Systems: Review of Systems All other systems reviewed and are negative. OBJECTIVE Objective: Physical Exam Constitutional: Appearance: Normal appearance. She is well-developed. Genitourinary: Vulva normal. Breasts: Breasts are soft. Right: Normal. Left: Normal. Cardiovascular: Rate and Rhythm: Normal rate and regular rhythm. Pulmonary: Effort: Pulmonary effort is normal. Breath sounds: Normal breath sounds. Abdominal: General: Bowel sounds are normal. There is no distension. Palpations: Abdomen is soft. Tenderness: There is no abdominal tenderness. There is no guarding or rebound. Musculoskeletal: General: No swelling. Normal range of motion. Right lower leg: No edema. Left lower leg: No edema. Neurological: Mental Status: She is alert and oriented to person, place, and time. Skin: General: Skin is warm and dry. Psychiatric: Mood and Affect: Mood normal. Behavior: Behavior normal. Vitals and nursing note reviewed. Exam conducted with a group practice pediatrician present. Vitals: Estimated body mass index is 31.83 kg/m as calculated from the following: Height as of 23: 5' 2 . Weight as of this encounter: 174 lb. BP: 110/70 No LMP recorded. ASSESSMENT & PLAN ICD-10-CM 1. Well woman exam with routine gynecological exam Z01.419 Pap Smear Annual Exam: Patient presents today for an annual exam. Patient states she is doing well and has no complaints. Pap was obtained without difficulty. Patient does have skin breakout on chest and arms from tanning bed and patient is being treated by [employer] for skin irritation. Discussed carrier screening for spouse & patient aware that testing could be ordered. Follow Up: Patient is to return in one year for annual unless needed otherwise. Documented by Karen Decker LPN on behalf of: Rik Gonzáles DO documented in this encounter [facility] Clinical Note 07-23-2022 Note Date & Type Note Facility 07-23-2022 Note EXAM: US PREG UMBILI TONE ARTERY HISTORY: Single umbilical artery Duplex Doppler evaluation of the umbilical arteries COMPARISON: 07/16/2022 TECHNIQUE: Grayscale, color and Doppler FINDINGS: The umbilical arteries: 1 position: Cephalic presentation, longitudinal lie Amniotic fluid volume, 22.3 cm. Largest fluid pocket 7.7 cm Heart rate: 147 bpm Proximal umbilical artery PSV/EDV: 122/54 cm/s. Resistive index 0.55. Ratio 2.2 Mid umbilical artery PSV/EDV: 92/57 cm/s. Resistive index 0.38. Ratio 1.6 Distal umbilical artery PSV/EDV: 51/31 cm/s. Resistive index 0.4. Ratio 1.7 Forward flow throughout diastole IMPRESSION: Normal exam. Class 0 Umbilical Artery: Class 0 = Normal umbilical artery blood velocity Class I = increased RI or PI, but still forward flow in diastole Class II = Absent end diastolic flow (AEDF) Class III = Reversal of end diastolic flow (REDF) Resistive Index (RI)<1 Systolic/Diastolic ratio (S:D): An S:D ratio of 2-3 after 34 wks is normal Systolic/Diastolic ratio (S:D): Age 16: 3.01 for the 10th percentile, 4.25 for the 50th percentile, 6.07 for the 90th percentile Age 20: 3.16 for the 10th percentile, 4.04 for the 50th percentile, 5.24 for the 90th percentile Age 24: 2.70 for the 10th percentile, 3.50 for the 50th percentile, 4.75 for the 90th percentile Age 28: 2.41 for the 10th percentile, 3.02 for the 50th percentile, 3.97 for the 90th percentile Age 30: 2.43 for the 10th percentile, 3.04 for the 50th percentile, 3.80 for the 90th percentile Age 32: 2.27 for the 10th percentile, 2.73 for the 50th percentile, 3.57 for the 90th percentile Age 34: 2.08 for the 10th percentile, 2.52 for the 50th percentile, 3.41 for the 90th percentile Age 36: 1.96 for the 10th percentile, 2.35 for the 50th percentile, 3.15 for the 90th percentile Age 38: 1.89 for the 10th percentile, 2.24 for the 50th percentile, 3.10 for the 90th percentile Age 40: 1.88 for the 10th percentile, 2.22 for the 50th percentile, 2.68 for the 90th percentile Age 41: 1.93 for the 10th percentile, 2.21 for the 50th percentile,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
[2024-06-13 18:08] LABS: Age Gdln ACOG Testing Note (.); IGP, rfx Aptima HPV ASCU Note (.)
== END 2024-06-09 15:02 | disposition home or self-care (01) ==
LOC: LAB 15:01
PROVIDERS: PCP Family Medicine; Visit Provider Obstetrics & Gynecology
DX: Z01.419 Encounter for gynecological examination (general) (routine) without abnormal findings (principal)
CPT/HCPCS: 88175